=== PATIENT | male | born 1980 | race Caucasian/White ===

== ENCOUNTER → 2019-09-23 09:57 | Outpatient (BNVA) | payer MEDICARE, SELFPAY | PROVIDERS: Visit Provider Emergency Medicine | DX: Z51.81 Encounter for therapeutic drug level monitoring (principal); F17.200 Nicotine dependence, unspecified, uncomplicated; F20.3 Undifferentiated schizophrenia | CPT/HCPCS: 80053; 80061 ==

== ENCOUNTER → 2019-11-03 17:59 | Outpatient (BNVA) | payer MEDICARE, SELFPAY | PROVIDERS: Visit Provider Family Medicine | DX: E03.9 Hypothyroidism, unspecified (principal); Z72.0 Tobacco use; R53.83 Other fatigue; F20.3 Undifferentiated schizophrenia; K64.9 Unspecified hemorrhoids; K21.9 Gastro-esophageal reflux disease without esophagitis; B35.1 Tinea unguium; M75.42 Impingement syndrome of left shoulder | CPT/HCPCS: 82607; 82652; 84439; 84443; 84481 ==

== ENCOUNTER 2019-11-11 06:00 | Outpatient (RCR) | payer MEDICARE, SELFPAY | END 2019-11-12 23:59 | disposition home or self-care (01) | LOC: MPT 06:00 | PROVIDERS: PCP Family Medicine; Referring Provider Family Medicine; Visit Provider Family Medicine | DX: M75.42 Impingement syndrome of left shoulder (principal) | CPT/HCPCS: 97110; 97140; 97161 ==

== ENCOUNTER 2019-11-13 06:00 | Outpatient (RCR) | payer MEDICARE, SELFPAY | END 2019-12-13 23:59 | disposition home or self-care (01) | LOC: MPT 06:00 | PROVIDERS: PCP Family Medicine; Referring Provider Family Medicine; Visit Provider Family Medicine | DX: M75.42 Impingement syndrome of left shoulder (principal) | CPT/HCPCS: 97110; 97140; 97530 ==

== ENCOUNTER → 2020-01-18 15:00 | Outpatient (BNVA) | payer MEDICARE, SELFPAY | PROVIDERS: PCP Family Medicine; Visit Provider Family Medicine | DX: E03.9 Hypothyroidism, unspecified (principal); F41.1 Generalized anxiety disorder; F20.3 Undifferentiated schizophrenia | CPT/HCPCS: 84443 ==

== ENCOUNTER → 2020-06-15 09:14 | Outpatient (BNVA) | payer MEDICARE, SELFPAY | PROVIDERS: PCP Family Medicine; Visit Provider Family Medicine | DX: F41.1 Generalized anxiety disorder (principal); E03.9 Hypothyroidism, unspecified; I10 Essential (primary) hypertension; F20.3 Undifferentiated schizophrenia; K64.9 Unspecified hemorrhoids; K21.9 Gastro-esophageal reflux disease without esophagitis | CPT/HCPCS: 80053; 84439; 84443; 84481 ==

== ENCOUNTER → 2020-07-27 10:27 | Outpatient (BNVA) | payer MEDICARE, SELFPAY | PROVIDERS: PCP Family Medicine; Visit Provider Family Medicine | DX: R53.83 Other fatigue (principal); I10 Essential (primary) hypertension; E55.9 Vitamin D deficiency, unspecified; Z72.0 Tobacco use; E03.9 Hypothyroidism, unspecified; F41.1 Generalized anxiety disorder; Z91.19 Patient's noncompliance with other medical treatment and regimen; F20.3 Undifferentiated schizophrenia | CPT/HCPCS: 80061; 82607; 82652 ==

== ENCOUNTER → 2020-11-08 09:36 | Outpatient (BNVA) | payer MEDICARE, SELFPAY | PROVIDERS: PCP Family Medicine; Visit Provider Emergency Medicine | DX: K21.9 Gastro-esophageal reflux disease without esophagitis (principal); K44.9 Diaphragmatic hernia without obstruction or gangrene; K92.0 Hematemesis; E03.9 Hypothyroidism, unspecified; F20.3 Undifferentiated schizophrenia | CPT/HCPCS: 84443; 85025 ==

== ENCOUNTER → 2020-12-22 12:10 | Outpatient (BNVA) | payer MEDICARE, SELFPAY | PROVIDERS: PCP Family Medicine; Visit Provider Surgery | DX: Z20.822 Contact with and (suspected) exposure to COVID-19 (principal) | CPT/HCPCS: 87635 ==

== ENCOUNTER 2020-12-27 08:07 | Day surgery (SDC) | payer MEDICARE, SELFPAY ==
[2020-12-27 08:54] VITALS: BP 137/82; PULSE 73; RESP 18; TEMP 36.4; O2SAT 97
[2020-12-27] MEDS: sodium chloride 0.9% 1,000 ML 30 ML IV (09:03)
--- NOTE | 2020-12-27 09:06 | ANES.PREANE2 ---
Pre-Anesthetic Assessment Pre-Anesthetic Assessment: Height/Weight: Height 1.8 m Weight 113.398 kg Temp Pulse Resp BP Pulse Ox 97.6 F 73 18 137/82 97 12/27/20 08:54 12/27/20 08:54 12/27/20 08:54 12/27/20 08:54 12/27/20 08:54 Preop Diagnosis: Hematemesis Proposed Procedure: Operation Date: 12/27/20 09:15 Proposed Procedures p EGD 64223 k21.9(Not Applicable) - Leonid Estrella MD Was Beta Fatimah taken within 24 hours: N/A Was Clonidine taken within 24 hours: N/A Last intake: Intake Last Liquid Date 12/26/20 Last Liquid Time 23:00 Last Solid Date 12/26/20 Last Solid Time 23:00 Social: Social History: No alcohol and No tobacco CV/HEM: CV/HEM: HTN GI: GI: GERD Metabolic: Metabolic: Thyroid Neuropsych: Neuropsych: Anxiety Anesthetic Plan: ASA status: 2 Anesthesia: MAC Risk of > 500 ml blood loss (7ml/kg in children): No Meds/Allergies Current Medications: Current Medications Generic Name Dose Route Start Last Admin Trade Name Freq PRN Reason Stop Dose Admin Sodium Chloride 1,000 mls @ 30 ml s/hr 12/27/20 09:00 12/27/20 09:03 Sodium Chloride 0.9% IV 30 mls/hr .Q24H PRANEETH Administration PFSH Anesthesia PFSH: Medical History Frequent loose stools ROSCOE (generalized anxiety disorder) GERD (gastroesophageal reflux disease) Heartburn Hiatal hernia Hypertension Hypothyroid Schizophrenia Seasonal allergies Smoking Surgical History History of colonoscopy History of esophagogastroduodenoscopy (EGD) Family History Grandfather Heart disease 3 blocked arteries Denies family history of Anesthesia complication Bleeding disorder Social History Smoking and tobacco status: current every day smoker cigarettes Alcohol intake: never Desire information about alcohol rehabilitation?: No Desire information about substance/drug rehabilitation?: No Caregiver/support person: Yes Lives independently: No Household members: spouse and children History of recent travel: No Current gender identity: Male Data Anesthesia Cardiac Studies: No Data to Display
--- NOTE | 2020-12-27 09:26 | W.PM.OPSFHP ---
Same Day Surgery H&P Indication for Procedure/HPI DATE OF PROCEDURE: December 27, 2020 CHIEF COMPLAINT/INDICATIONFOR SURGICAL PROCEDURE: Vomiting of blood PREOP DIAGNOSIS: Hematemesis PLANNED PROCEDRUE: Operation Date: 12/27/20 09:15 Proposed Procedures p EGD 32891 k21.9(Not Applicable) - Leonid Estrella MD 11/15/20 This is a pleasant 40 years old gentleman has history of repeated vomiting attacks also gives a history of hiatal hernia and had noticed some blood at the last portion of his vomitus. Patient comes today for potential discussion about endoscopy, he has been on PPI therapy for many years. And it does not seem that he is making good progress. 12/27/20 Patient comes today for diagnostic EGD ROS All systems have been reviewed negative except as per the above or per problem list Medications/Allergies* Home Medications Medication Instructions Recorded Confirmed Type cholecalciferol (vitamin D3) 25 125 mcg PO .weekly cap 07/27/20 12/27/20 History mcg (1,000 unit) capsule magnesium oxide 400 mg PO DAILY 07/27/20 12/27/20 History zinc 50 mg tablet 50 mg PO DAILY 07/27/20 12/27/20 History Allergies/Adverse Reactions Allergy/AdvReac Type Severity Reaction Status Date / Time No Known Allergies Allergy Verified 12/13/20 12:40 Current Medications: Generic Name Dose Route Start Last Admin Trade Name Freq PRN Reason Stop Dose Admin Sodium Chloride 1,000 mls @ 30 mls/hr 12/27/20 09:00 12/27/20 09:03 Sodium Chloride 0.9% IV 30 mls/hr .Q24H PRANEETH Administration Pertinent History/Comorbid Conditions* Medical History Frequent loose stools ROSCOE (generalized anxiety disorder) GERD (gastroesophageal reflux disease) Heartburn Hiatal hernia Hypertension Hypothyroid Schizophrenia Seasonal allergies Smoking Surgical History (Updated 09/03/19 @ 15:41 by Monroe Don MD) History of colonoscopy History of esophagogastroduodenoscopy (EGD) Family History (Updated 09/03/19 @ 09:28 by TREVOR Landers) Heart disease Grandfather 3 blocked arteries Denies family history of Anesthesia complication Bleeding disorder Social History Smoking and tobacco status: current every day smoker cigarettes Alcohol intake: never Desire information about alcohol rehabilitation?: No Desire information about substance/drug rehabilitation?: No Caregiver/support person: Yes Lives independently: No Household members: spouse and children History of recent travel: No Current gender identity: Male Pertinent Exam Findings alert, oriented x 3, clear to auscultation bilaterally, regular rate & rhythm and procedure specific exam findings (Abdominal examination nontender nondistended soft) Recommendations Surgery/Procedure today (EGD with possible Biopsy) Coding Level of Care Code Acute 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
[2020-12-27 09:46] VITALS: BP 108/76; PULSE 75; RESP 16; TEMP 36.1; O2SAT 94
[2020-12-27 09:59] VITALS: BP 110/78; PULSE 65; RESP 18; O2SAT 99
--- NOTE | 2020-12-27 14:11 | ANE.PACU2 ---
Inpatient post-anesthesia follow up: Airway intact: Yes Vital signs: Temperature 97.0 F Pulse Rate 65 Respiratory Rate 18 Blood Pressure 110/78 Pulse Oximetry 99 Oxygen Delivery Me thod Room Air Oxygen Flow Rate Fraction of Inspir ed Oxygen Hydration adequate: Yes Nausea and vomiting: No Pain level: 1 Mental status: Baseline
[2020-12-28 13:15] LABS: H. Pylori / CLO Test Negative
== END 2020-12-27 10:05 | disposition home or self-care (01) ==
PROVIDERS: PCP Family Medicine; Visit Provider Surgery
PROC: 0DJ08ZZ Inspection of Upper Intestinal Tract, Via Natural or Artificial Opening Endoscopic (ICD-10-PCS; CPT 43235; principal; 2020-12-27 09:15)
DX: K92.0 Hematemesis (principal); K29.70 Gastritis, unspecified, without bleeding; K31.4 Gastric diverticulum; K21.9 Gastro-esophageal reflux disease without esophagitis; I10 Essential (primary) hypertension; E03.9 Hypothyroidism, unspecified; F17.210 Nicotine dependence, cigarettes, uncomplicated
CPT/HCPCS: 43239; 87077; 96360; J2704; J7030

== ENCOUNTER 2021-02-18 14:43 | Inpatient (IN) | payer MEDICARE, SELFPAY ==
[2021-02-18 14:48] VITALS: BP 135/89; PULSE 93; RESP 18; TEMP 36.4; O2SAT 96; BMI 33.5
--- NOTE | 2021-02-18 15:52 | ED_ITS ---
HPI - General Adult General: Chief complaint: Psychiatric Symptoms Stated complaint: MHE:TALKING TO SELF, NO SLEEP Time Seen by Provider: 02/18/21 15:04 History of Present Illness: HPI narrative: HPI: [40]yo patient w/ hx of anxiety, jesus manuel presenting for acute manic episode. On arrival, the patient is AAOx3 and cooperative with my evaluation. No focal complaints of chest pain, shortness of breath, palpitations, N/V, focal GI/ complaints. Currently denies SI/HI. No complaints of hallucinations. Onset: 3 days ago Duration: ongoing Location: home Severity: severe Review of Systems Narrative: Constitutional: No fever, no chills. HEENT: No vision changes CV: No chest pain, no palpitations PULM: No productive cough, no dyspnea. GI: No abdominal pain, no N/V/D. : No dysuria MSKEL: No muscle pain SKIN: No new rashes, no lesions. NEURO: No headache, no focal weakness. HEME: No visible bruises PSYCH: Normal mood, +jesus manuel PFSH ED PFSH: Medical History Frequent loose stools ROSCOE (generalized anxiety disorder) GERD (gastroesophageal reflux disease) Heartburn Hiatal hernia Hypertension Hypothyroid Schizophrenia Seasonal allergies Smoking Surgical History History of colonoscopy History of esophagogastroduodenoscopy (EGD) Family History Grandfather Heart disease 3 blocked arteries Denies family history of Anesthesia complication Bleeding disorder Social History Smoking and tobacco status: current every day smoker cigarettes Alcohol intake: never Desire information about alcohol rehabilitation?: No Desire information about substance/drug rehabilitation?: No Caregiver/support person: Yes Lives independently: No Household members: spouse and children History of recent travel: No Current gender identity: Male Physical Exam Narrative: EXAM NARRATIVE: Head: Atraumatic Eyes: PERRL, conjunctiva without injection, eyes tracking ENT: Mucous membrane moist NECK: Supple without lymphadenopathy LUNGS: LCTAB CV: RRR ABDOMEN: Soft, nontender EXTREMITY: Normal ROM SKIN: No rash or erythema NEURO: Awake and alert. No focal weakness PSYCH: Cooperative mood and affect. Course Vital Signs: Vital signs: Vital Signs Temperature 97.5 F L 02/18/21 14:48 Pulse Rate 93 02/18/21 14:48 Respiratory Rate 18 02/18/21 14:48 Blood Pressure 135/89 02/18/21 14:48 Pulse Oximetry 96 02/18/21 14:48 MDM - General Adult MDM Narrative: Medical decision making narrative: [40]yo patient w/ hx anxiety and jesus manuel presenting for jesus manuel and psychosis. HDS, exam within normal limit +Psychosis and jesus manuel today. Clinically the patient displays no overt toxidrome; they are well appearing, with low suspicion for toxic ingestion given history and exam. Symptoms unlikely 2/2 anemia, hypothyroidism, infection, or ICH. Workup: CBC, CMP, Lipase, salicylate/tylenol, UDS Lab findings: wnl [3:55pm] On reassessment, labs and workup wnl. Patient is hemodynamically stable with no acute medical complaints. Case discussed with psychiatric provider Dr. Matthews at [facility] psych inpatient with recommendation for admission Disposition: Psych Lab Data: Labs: Lab Results 02/18/21 02/18/21 02/18/21 14:50 16:06 16:06 WBC 8.2 10^3/uL 10^3/ uL (4.0-10.0) RBC 4.68 10^6/uL 10^6 /uL (4.1-5.3) Hgb 14.8 g/dL g/dL (11.7-16.6) Hct 40.2 % L % (42.0-52.0) MCV 85.9 fl fl (80-94) MCH 31.6 pg pg (28.0-34.0) MCHC 36.8 g/dL H g/dL (30.0-36.0) RDW 11.3 % L % (12.1-15.1) Plt Count 278 10^3/cmm 10^3 /cmm (130-400) MPV 8.6 fL fL (7.4-10.4) Neut % (Auto) 57.2 % % Lymph % (Auto) 31.9 % % Leslie % (Auto) 7.9 % % Eos % (Auto) 2.4 % % Baso % (Auto) 0.4 % % Neut # (Auto) 4.70 10^3/uL 10^3 /uL (1.8-7.7) Lymph # (Auto) 2.6 10^3/uL 10^3/ uL (0.8-4.8) Leslie # (Auto) 0.7 10^3/uL 10^3/ uL (0.2-0.9) Eos # (Auto) 0.2 10^3/uL 10^3/ uL (0.0-0.8) Baso # (Auto) 0.0 10^3/uL 10^3/ uL (0.0-0.1) Nucleated RBC % (a uto) 0 % % Nucleated RBCs # 0.0 /100WBC /100W BC Sodium 125 mmol/L L mmol /L (136-145) Potassium 3.9 mmol/L mmol/L (3.5-5.1) Chloride 89 mmol/L L mmol/ L (98-107) Carbon Dioxide 24 mmol/L mmol/L (22-29) Anion Gap 15.9 (5-19) BUN 5 mg/dL L mg/dL (6-20) Creatinine 0.7 mg/dL mg/dL (0.7-1.2) GFR Calculation 126.2 mL/min mL/m in (90-130) Glucose 107 mg/dL mg/dL (65-115) Calculated Osmolal ity 258 mOsm/kg L mOs m/kg (285-295) Calcium 8.5 mg/dL mg/dL (8.5-10.5) Salicylates < 0.3 mg/dL L mg/ dL (3-10) Urine Opiates Scre en Negative ng/mL ng /mL (Negative) Acetaminophen < 5.0 ug/mL L ug/ mL (10-30) Ur Barbiturates Sc reen Negative ng/mL ng /mL (Negative) Ur Phencyclidine S crn Negative ng/mL ng /mL (Negative) Ur Amphetamines Sc reen Negative ng/mL ng /mL (Negative) U Benzodiazepines Scrn Negative ng/mL ng /mL (Negative) Urine Cocaine Scre en Negative ng/mL ng /mL (Negative) U Marijuana (THC) Screen Negative ng/mL ng /mL (Negative) Discharge Plan Discharge Patient Disposition: Admitted As Inpatient Clinical Impression: Psychosis, Jesus Manuel Condition: Stable Coding Level of Care Code ED Automation And Controls Instructor for Bettye Doshi
[2021-02-18 16:15] LABS: Basophils % 0.4 %; Eosinophils # 0.2 10^3/uL (0.0-0.8); Eosinophils % 2.4 %; Hematocrit 40.2 % (42.0-52.0); Hemoglobin 14.8 g/dL (11.7-16.6); Lymphocytes # 2.6 10^3/uL (0.8-4.8); Lymphocytes % 31.9 %; Mean Corpuscular HGB Conc 36.8 g/dL (30.0-36.0); Mean Corpuscular Hemoglobin 31.6 pg (28.0-34.0); Mean Corpuscular Volume 85.9 fl (80-94); Mean Platelet Volume 8.6 fL (7.4-10.4); Monocytes # 0.7 10^3/uL (0.2-0.9); Monocytes % 7.9 %; Neutrophils % 57.2 %; Nucleated Red Blood Cells % 0 %; Platelet Count 278 10^3/cmm (130-400); Red Blood Count 4.68 10^6/uL (4.1-5.3); Red Cell Distribution Width 11.3 % (12.1-15.1); White Blood Count 8.2 10^3/uL (4.0-10.0)
[2021-02-18 16:24] LABS: Amphetamines Screen Urine Negative (Negative); Barbiturates Screen Urine Negative (Negative); Benzodiazepines Screen Urine Negative (Negative); Cocaine Screen Urine Negative (Negative); Opiate Screen Urine Negative (Negative); PCP Screen Urine Negative (Negative); THC Screen Urine Negative (Negative)
[2021-02-18 16:40] LABS: Anion Gap 15.9 (5-19); Blood Urea Nitrogen 5 mg/dL (6-20); Calcium 8.5 mg/dL (8.5-10.5); Carbon Dioxide 24 mmol/L (22-29); Chloride 89 mmol/L (98-107); Glomerular Filtration Rate 126.2 mL/min (90-130); Glucose 107 mg/dL (65-115); Osmolality Calculated 258 mOsm/kg (285-295); Potassium 3.9 mmol/L (3.5-5.1); Sodium 125 mmol/L (136-145)
[2021-02-18 16:41] LABS: Acetaminophen < 5.0 ug/mL (10-30); Salicylate < 0.3 mg/dL (3-10)
[2021-02-18] MEDS: nicotine 21 mg Patch 1 PATCH TRANSDERMA (18:05)
[2021-02-18 18:36] VITALS: BP 128/82; PULSE 78; RESP 17; TEMP 36.5; O2SAT 95
[2021-02-18 20:57] VITALS: BP 109/61; PULSE 79; RESP 17; TEMP 36.6; O2SAT 99
[2021-02-19] MEDS: nicotine 2 mg Gum BUCCAL (05:59)
[2021-02-19 06:00] VITALS: BP 101/72; PULSE 92; RESP 18; TEMP 36.7; O2SAT 99
[2021-02-19] MEDS: fluticasone nasal spray 16gm Btl 1 SPRAY NASAL (08:17)
[2021-02-19] MEDS: magnesium oxide 400 mg tablet PO (08:18)
[2021-02-19] MEDS: famotidine 20 mg Tablet PO ×2 (08:18→20:05)
[2021-02-19] MEDS: pantoprazole DR 40 mg Tablet PO (08:18)
[2021-02-19] MEDS: zinc gluconate 50 mg Tablet PO (08:18)
[2021-02-19] MEDS: fluoxetine 20 mg Capsule PO (08:18)
[2021-02-19] MEDS: levothyroxine 100 mcg Tablet 200 MCG PO (08:18)
[2021-02-19] MEDS: nicotine 21 mg Patch 1 PATCH TRANSDERMA (08:38)
--- NOTE | 2021-02-19 11:41 | NPU.GN ---
[facility] Unit Group Topic:Stressors Psych Education Worksheet General Mood of Group: Bc did attend group therapy this morning. He participated with others in the group and shared experiences with others in the group and this senior writer. Bc was very informative while explaining to others in the group his experiences and how medication is important with a mental health diagnosis. Bc did sign up for [facility] services with [facility] as this senior writer aided patient in completing the paperwork. Intake packet completed.
--- NOTE | 2021-02-19 12:38 | W.PM.NPUH&PS ---
Providers/Chief Complaint Admitting Physician: Elroy Matthews MD Primary Care Provider: Odalys Matthews MD Chief Complaint: MHE:TALKING TO SELF, NO SLEEP HPI NPU History of Present Illness Bc Chao is a 40 year old male who presented to the emergency department with the following report: Chief complaint: Psychiatric Symptoms Stated complaint: MHE:TALKING TO SELF, NO SLEEP Time Seen by Provider: 02/18/21 15:04 History of Present Illness: HPI narrative: HPI: [40]yo patient w/ hx of anxiety, jesus manuel presenting for acute manic episode. On arrival, the patient is AAOx3 and cooperative with my evaluation. No focal complaints of chest pain, shortness of breath, palpitations, N/V, focal GI/ complaints. Currently denies SI/HI. No complaints of hallucinations. Onset: 3 days ago Duration: ongoing Location: home Severity: severe. He was admitted to the neuropsychiatric unit for definitive treatment of those issues. He presents today reporting that he has been hospitalized psychiatrically as a kid. Given his state of likely jesus manuel he struggled to stay on task or explain some aspects with clarity. But he reports between ages 17 and 19 he was hospitalized multiple times and it appears he may have had periods he was at a residential treatment facility. He reports he started having psychosis and at one point became mute due to his lack of trust and presence of paranoia. He endorses a long history of medications including Zyprexa, Seroquel Wellbutrin and Prozac. He reports that he has been on the Abilify injection for as long as he can remember. He reports has been effective until recently. He reports he stopped going to outpatient treatment facilities because he became so stable that his family doctor was able to prescribe for him and now things have changed and he is really worried. He endorses smoking less than a pack of cigarettes a day, denies alcohol, marijuana or any illicit drug use he reports he does have a past history of marijuana and some crack that he used very briefly he reports he did have a rehab stent as a child but that may have been confused with the RTF but he denies ever having a DUI. He denies any suicide attempts. But he reports that he seems to be entering a manic phase he had a period of days where he went 3 days without sleep he reports he been really hard on him and his reports he has been talking to himself more and more but he had previously been really stable. He reports increased pace of his speech feeling like he is on speed so to speak. We discussed the risk benefits and alternatives of a trial of Invega versus lithium and he understood and agreed to proceed as is documented in this note. Psychiatric history: As above. Substance abuse history: As above. Family history: He reports that there has been some mental health and addiction issues in his family but he denies any suicide attempts or completions in his family. Developmental history: He denies any issues with his or delivery, reports that he learned to walk and talk and met his developmental milestones on time, reports that when he went off to school he did not require speech therapy, learning support emotional support or special education classes. Psychosocial history: He reports that his parents were together when he was born but split early on and that he is the only product of that union. He reports he has 2 younger siblings a brother and a sister through his mother that are his half siblings and he is unaware of any children that would be his half siblings from his father. He reports his childhood was good and denied emotional physical or sexual abuse but he did report that his brother was taken by [facility] and that he was in placement but again he was unclear about RTF versus inpatient hospital versus placement by child protective services. He did not graduate from high school but he did get his GED and get some college. He endorses being a heterosexual with his longest relationship being 4 years. He reports he has been 1 time and never , he denies having any children, he denies being in the , and endorses being a Denominational. 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 He currently lives in a house with his . Legal history: He denies any significant legal peril except for some things that may have happened in his youth. Medical history: He endorses some diverticulitis. Meds NPU Home Medications Medication Instructions Recorded Confirmed Last Taken Type magnesium oxide 400 mg PO DAILY 07/27/20 02/18/21 02/17/21 History zinc 50 mg tablet 50 mg PO DAILY 07/27/20 02/18/21 02/17/21 History fluoxetine 20 mg capsule 20 mg PO DAILY 30 Days #30 cap 12/13/20 02/18/21 02/17/21 Rx ibuprofen 800 mg tablet 800 mg PO Q8H PRN 30 Days #90 tab 12/13/20 02/18/21 12/26/20 Rx loratadine 10 mg tablet 10 mg PO DAILY PRN 30 Days #30 tab 12/13/20 02/18/21 12/26/20 Rx fluticasone propionate 50 See Rx Instructions .ROUTE 01/08/21 02/18/21 Unknown Rx mcg/actuation nasal .COMPLEX #16 g spray,suspension Euthyrox 200 mcg PO DAILY 02/18/21 02/18/21 02/17/21 History aripiprazole 400 mg IM Q28D 02/18/21 02/18/21 Unknown History docusate sodium 100 mg PO BID PRN 02/18/21 02/18/21 Unknown History famotidine 20 mg PO BID 02/18/21 02/18/21 02/17/21 History pantoprazole 40 mg PO DAILY 02/18/21 02/18/21 02/17/21 History Allergies Allergy/AdvReac Type Severity Reaction Status Date / Time quetiapine [From Seroquel] AdvReac ADR-Anxiety Verified 02/19/21 05:24 PFSH NPU PFSH: Medical History Frequent loose stools ROSCOE (generalized anxiety disorder) GERD (gastroesophageal reflux disease) Heartburn Hiatal hernia Hypertension Hypothyroid Schizophrenia Seasonal allergies Smoking Surgical History History of colonoscopy History of esophagogastroduodenoscopy (EGD) Family History Grandfather Heart disease 3 blocked arteries Denies family history of Anesthesia complication Bleeding disorder Social History Smoking and tobacco status: current every day smoker cigarettes Alcohol intake: never Desire information about alcohol rehabilitation?: No Desire information about substance/drug rehabilitation?: No Caregiver/support person: Yes Lives independently: No Household members: spouse and children History of recent travel: No Current gender identity: Male Mental Status Exam MSE Comments: This is an overweight versus obese white male with hospital scrubs on with appropriate grooming and eye contact. No abnormal movements except for mild psychomotor retardation. Cooperative with exam in mild to moderate distress. Speech was normal rate and volume. Mood described as anxious and a little scared, affect congruent and tearful. Thought process organized. Thought content: Patient denied suicidal or homicidal ideation, there were no delusions reported or noted, but there were some reports of confusion about the authenticity of different thoughts, he did report having some auditory and visual hallucinations. Attention and concentration were intact and memory appeared mostly reliable but none were formally tested. He is alert and oriented x3. Insight and judgment are fair, impulse control is limited. Vitals/I&O/Wt Last Vital Signs Temp 98.1 F 02/19/21 06:00 Pulse 92 02/19/21 06:00 Resp 18 02/19/21 06:00 BP 101/72 02/19/21 06:00 Pulse Ox 99 02/19/21 06:00 Weight last 48 hrs Weight 108.862 kg Data NPU : 02/18/21 16:06 02/18/21 16:06 A&P Assessment and plan (1) Psychosis: Status: Acute (2) Jesus Manuel: Status: Acute (3) Gastritis: Status: Acute (4) Gastric diverticulum: Status: Chronic (5) Frequent loose stools: Status: Acute Qualifiers: Diarrhea type: unspecified type Qualified Code(s): R19.7 - Diarrhea, unspecified (6) Hiatal hernia: Status: Acute (7) Vitamin D deficiency: Status: Acute (8) Seasonal allergies: Status: Acute (9) Hypertension: Status: Acute Qualifiers: Hypertension type: essential hypertension Qualified Code(s): I10 - Essential (primary) hypertension (10) ROSCOE (generalized anxiety disorder): Status: Acute (11) Hypothyroid: Status: Acute Qualifiers: Hypothyroidism type: acquired Qualified Code(s): E03.9 - Hypothyroidism, unspecified (12) Tobacco use: Status: Acute (13) Schizophrenia: Status: Acute Qualifiers: Schizophrenia type: undifferentiated schizophrenia Qualified Code(s): F20.3 - Undifferentiated schizophrenia (14) Bleeding hemorrhoids: Status: Acute (15) GERD (gastroesophageal reflux disease): Status: Acute Qualifiers: Esophagitis presence: without esophagitis Qualified Code(s): K21.9 - Gastro-esophageal reflux disease without esophagitis Additional A&P Information This is a 40-year-old white male with a long history of schizoaffective disorder bipolar type versus bipolar disorder who presents with some possible jesus manuel and the lack of effectiveness of his longtime long-acting injectable Fabiola Esparza who presents open to a trial of medication to either augment or change to. 1. Continue current medication. We will start Invega 6 mg p.o. every morning. 2. Encourage individual, group and milieu therapy. 3. Continue every 15 minute checks for safety. Attestations NPU Medical Necessity Statement*: Inpatient hospitalization is medically necessary and the clinically appropriate intervention at this time. We will monitor medications and make changes as indicated. Likely length of stay 4 to 6 days. He will be in the hospital for over 2 midnights. 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 [facility] Fwd Diagnoses Psychosis F29 Jesus Manuel F30.9 Gastritis K29.70 Gastric diverticulum K31.4 Frequent loose stools R19.7 Diarrhea type: unspecified type Hiatal hernia K44.9 Vitamin D deficiency E55.9 Seasonal allergies J30.2 Hypertension I10 Hypertension type: essential hypertension ROSCOE (generalized anxiety disorder) F41.1 Hypothyroid E03.9 Hypothyroidism type: acquired Tobacco use Z72.0 Schizophrenia F20.3 Schizophrenia type: undifferentiated schizophrenia Bleeding hemorrhoids K64.9 GERD (gastroesophageal reflux disease) K21.9 Esophagitis presence: without esophagitis
[2021-02-19 14:00] VITALS: BP 140/83; PULSE 78; RESP 20; TEMP 36.7; O2SAT 95
[2021-02-19] MEDS: paliperidone ER 6 mg Tablet PO (16:09)
[2021-02-19 21:03] VITALS: BP 120/79; PULSE 79; RESP 16; TEMP 36.6; O2SAT 99
[2021-02-20 05:53] VITALS: RESP 17
[2021-02-20] MEDS: pantoprazole DR 40 mg Tablet PO (06:09)
[2021-02-20] MEDS: magnesium oxide 400 mg tablet PO (06:09)
[2021-02-20] MEDS: levothyroxine 100 mcg Tablet 200 MCG PO (06:09)
[2021-02-20] MEDS: fluticasone nasal spray 16gm Btl 1 SPRAY NASAL (08:21)
[2021-02-20] MEDS: fluoxetine 20 mg Capsule PO (08:22)
[2021-02-20] MEDS: zinc gluconate 50 mg Tablet PO (08:22)
[2021-02-20] MEDS: paliperidone ER 6 mg Tablet PO (08:22)
[2021-02-20] MEDS: nicotine 21 mg Patch 1 PATCH TRANSDERMA (08:22)
[2021-02-20] MEDS: famotidine 20 mg Tablet PO ×2 (08:23→20:50)
--- NOTE | 2021-02-20 11:41 | NPU.GN ---
[facility] Unit Group Topic:Grounding Thoughts, Coping Skills General Mood of Group: Bc did very well and attended group today. Bc was social and in a good mood today. Bc is very knowledgeable with coping mechanisms and shared incite with others in the group.
[2021-02-20 14:00] VITALS: BP 143/89; PULSE 84; RESP 17; TEMP 36.6; O2SAT 98
--- NOTE | 2021-02-20 14:20 | W.PM.NPUPNS ---
Subjective NPU Subjective: Interval history: Patient presents today reporting that he feels the Invega is effective and is really slowing him down a bit. Reports that he is wondering whether we can give him the injection today. We discussed slowing down in making sure that we in fact see improvement before we talk about an injection and then really trying to come to the decision of whether we are cross titrating versus augmenting with the Invega. Mental Status Exam MSE Comments: This is an overweight versus obese white male with hospital scrubs on with appropriate grooming and eye contact. No abnormal movements except for mild psychomotor retardation. Cooperative with exam in mild distress. Speech was normal rate and volume. Mood described as a little better, affect congruent and more calm. Thought process organized. Thought content: Patient denied suicidal or homicidal ideation, there were no delusions reported or noted, but there were some reports of confusion about the authenticity of different thoughts, he did report having some auditory and visual hallucinations. Attention and concentration were intact and memory appeared mostly reliable but none were formally tested. He is alert and oriented x3. Insight and judgment are fair, impulse control is limited. Vitals/I&O/Wt Last Vital Signs Temp 97.8 F 02/19/21 21:03 Pulse 79 02/19/21 21:03 Resp 17 02/20/21 05:53 BP 120/79 02/19/21 21:03 Pulse Ox 99 02/19/21 21:03 Weight last 48 hrs Weight 108.862 kg Data NPU : 02/18/21 16:06 02/18/21 16:06 A&P Additional A&P Information (1) Psychosis: (2) Jeanette: (3) Gastritis: (4) Gastric diverticulum: (5) Frequent loose stools: (6) Hiatal hernia: (7) Vitamin D deficiency: (8) Seasonal allergies: (9) Hypertension: (10) ROSCOE (generalized anxiety disorder): (11) Hypothyroid: (12) Tobacco use: (13) Schizophrenia: (14) Bleeding hemorrhoids: (15) GERD (gastroesophageal reflux disease): Additional A&P Information This is a 40-year-old white male with a long history of schizoaffective disorder bipolar type versus bipolar disorder who presents with some possible jeanette and the lack of effectiveness of his longtime long-acting injectable Abilify Maintena who presents open to a trial of medication to either augment or change to. 1. Continue current medication. 2. Encourage individual, group and milieu therapy. 3. Continue every 15 minute checks for safety. Attestations NPU Medical Necessity Statement*: Inpatient hospitalization is medically necessary and the clinically appropriate intervention at this time. We will monitor medications and make changes as indicated. Likely length of stay 2-4 days. Coding Level of Care Code Acute Filling Room Operator for Bettye Doshi
[2021-02-20 20:33] VITALS: RESP 18
[2021-02-21 06:00] VITALS: BP 149/99; PULSE 86; RESP 18; O2SAT 98
[2021-02-21] MEDS: levothyroxine 100 mcg Tablet 200 MCG PO ×2 (07:23→09:06)
[2021-02-21] MEDS: zinc gluconate 50 mg Tablet PO (09:06)
[2021-02-21] MEDS: fluoxetine 20 mg Capsule PO (09:06)
[2021-02-21] MEDS: pantoprazole DR 40 mg Tablet PO (09:06)
[2021-02-21] MEDS: famotidine 20 mg Tablet PO (09:06)
[2021-02-21] MEDS: paliperidone ER 6 mg Tablet PO (09:06)
[2021-02-21] MEDS: docusate sodium 100 mg Capsule PO (09:06)
[2021-02-21] MEDS: magnesium oxide 400 mg tablet PO (09:06)
[2021-02-21] MEDS: fluticasone nasal spray 16gm Btl 1 SPRAY NASAL (09:07)
[2021-02-21] MEDS: nicotine 2 mg Gum BUCCAL ×2 (10:24→12:23)
--- NOTE | 2021-02-21 12:51 | NPU.GN ---
[facility] Group Topic: Self Care Bingo/ Crisis Plan Work Sheet General Mood of Group: Bc did attend and participate in group today. His demeanour was good and he was social in group with this conventional underwriter and others. Bc seems very informative with others in group with given advice to others and often shares his experiences and opinions on topics. Bc seems as though he is stable as he has mentioned to this conventional underwriter that he just needed help with his medications, and what he is on now seem to be helping him. He is ready to go home.
--- NOTE | 2021-02-21 13:15 | DCPLANNER ---
IMM completed with pt on 02/21/21 @ [id number]. Pt was given a copy of rights.
[2021-02-21 14:00] VITALS: BP 138/92; PULSE 83; RESP 17; TEMP 36.9; O2SAT 97
[2021-02-21] MEDS: paliperidone palmitate 234 mg Syringe IM (18:16)
--- NOTE | 2021-02-21 18:23 | P.NPUDS_ITS ---
Diagnoses at Discharge Discharge Diagnosis (1) Psychosis: Status: Acute (2) Jesus Manuel: Status: Acute (3) Gastritis: Status: Acute (4) Gastric diverticulum: Status: Chronic (5) Frequent loose stools: Status: Acute Qualifiers: Diarrhea type: unspecified type Qualified Code(s): R19.7 - Diarrhea, unspecified (6) Hiatal hernia: Status: Acute (7) Vitamin D deficiency: Status: Acute (8) Seasonal allergies: Status: Acute (9) Hypertension: Status: Acute Qualifiers: Hypertension type: essential hypertension Qualified Code(s): I10 - Essential (primary) hypertension (10) ROSCOE (generalized anxiety disorder): Status: Acute (11) Hypothyroid: Status: Acute Qualifiers: Hypothyroidism type: acquired Qualified Code(s): E03.9 - Hypothyroidism, unspecified (12) Tobacco use: Status: Acute (13) Schizophrenia: Status: Acute Qualifiers: Schizophrenia type: undifferentiated schizophrenia Qualified Code(s): F20.3 - Undifferentiated schizophrenia (14) Bleeding hemorrhoids: Status: Acute (15) GERD (gastroesophageal reflux disease): Status: Acute Qualifiers: Esophagitis presence: without esophagitis Qualified Code(s): K21.9 - Gastro-esophageal reflux disease without esophagitis Reason for Visit Reason for Visit: MHE:TALKING TO SELF, NO SLEEP Brief History: History of Present Illness Bc Chao is a 40 year old male who presented to the emergency department with the following report: Chief complaint: Psychiatric Symptoms Stated complaint: MHE:TALKING TO SELF, NO SLEEP Time Seen by Provider: 02/18/21 15:04 History of Present Illness: HPI narrative: HPI: [40]yo patient w/ hx of anxiety, jesus manuel presenting for acute manic episode. On arrival, the patient is AAOx3 and cooperative with my evaluation. No focal complaints of chest pain, shortness of breath, palpitations, N/V, focal GI/ complaints. Currently denies SI/HI. No complaints of hallucinations. Onset: 3 days ago Duration: ongoing Location: home Severity: severe. He was admitted to the neuropsychiatric unit for definitive treatment of those issues. He presents today reporting that he has been hospitalized psychiatrically as a kid. Given his state of likely jesus manuel he struggled to stay on task or explain some aspects with clarity. But he reports between ages 17 and 19 he was hospitalized multiple times and it appears he may have had periods he was at a residential treatment facility. He reports he started having psychosis and at one point became mute due to his lack of trust and presence of paranoia. He endorses a long history of medications including Zyprexa, Seroquel Wellbutrin and Prozac. He reports that he has been on the Abilify injection for as long as he can remember. He reports has been effective until recently. He reports he stopped going to outpatient treatment facilities because he became so stable that his family doctor was able to prescribe for him and now things have changed and he is really worried. He endorses smoking less than a pack of cigarettes a day, denies alcohol, marijuana or any illicit drug use he reports he does have a past history of marijuana and some crack that he used very briefly he reports he did have a rehab stent as a child but that may have been confused with the RTF but he denies ever having a DUI. He denies any suicide attempts. But he reports that he seems to be entering a manic phase he had a period of days where he went 3 days without sleep he reports he been really hard on him and his reports he has been talking to himself more and more but he had previously been really stable. He reports increased pace of his speech feeling like he is on speed so to speak. We discussed the risk benefits and alternatives of a trial of Invega versus lithium and he understood and agreed to proceed as is documented in this note. Psychiatric history: As above. Substance abuse history: As above. Family history: He reports that there has been some mental health and addiction issues in his family but he denies any suicide attempts or completions in his family. Developmental history: He denies any issues with his or delivery, reports that he learned to walk and talk and met his developmental milestones on time, reports that when he went off to school he did not require speech therapy, learning support emotional support or special education classes. Psychosocial history: He reports that his parents were together when he was born but split early on and that he is the only product of that union. He reports he has 2 younger siblings a brother and a sister through his mother that are his half siblings and he is unaware of any children that would be his half siblings from his [facility] er. He reports his childhood was good and denied emotional physical or sexual abuse but he did report that his brother was taken by [facility] and that he was in placement but again he was unclear about RTF versus inpatient hospital versus placement by child protective services. He did not graduate from high school but he did get his GED and get some college. He endorses being a heterosexual with his longest relationship being 4 years. He reports he has been 1 time and never , he denies having any children, he denies being in the , and endorses being a Christianity. 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 He currently lives in a house with his . Legal history: He denies any significant legal peril except for some things that may have happened in his youth. Medical history: He endorses some diverticulitis. Hospital Course Hospital Course Easily acclimated competencies provided. We started Invega 6 mg p.o. every morning and then started the Invega injection to be continued after discharge. He is already on the Abilify Maintena injection and we discussed him continuing both injectables but discussed working with his outpatient team to determine if he can take the Invega injection alone. However with his long history without missing an injection he may very well need both medications. We discussed the possibility of him staying longer however as a voluntary patient he was working with his to support him discharging and he was able to contract for safety outside the hospital prior to discharge. And his was supportive of them managing this at home together. During the hospitalization, patient had routine laboratory studies which were within normal limits except for few outliers. Additionally there was a general medical evaluation which was also within normal limits and revealed no new acute processes. Discharge Summary: At the time of discharge, lethality was denied and psychosis was resolving. Mood and anxiety were well managed. Patient endorsed a plan to avoid all drugs of abuse and follow-up with the aftercare recommendations of the treatment team. Patient was evaluated and deemed to be absent credible lethality, and had achieved improvement during this inpatient hospitalization, and identification but desired to be discharged and was a voluntary patient without clear criteria for a 96-hour hold so was discharged. Mental Status Exam MSE Comments: This is an overweight versus obese white male with hospital scrubs on with appropriate grooming and eye contact. No abnormal movements except for mild psychomotor retardation. Cooperative with exam in no acute distress. Speech was normal rate and volume. Mood described as better, affect congruent and more calm. Thought process organized. Thought content: Patient denied suicidal or homicidal ideation, there were no delusions reported or noted, but there were reports of confusion about the authenticity of different thoughts which was improving, he did report having diminished auditory and visual hallucinations. Attention and concentration were intact and memory appeared mostly reliable but none were formally tested. He is alert and oriented x3. Insight and judgment are fair, impulse control is limited. Discharge Data Vitals: Last Vital Signs Temp 98.4 F 02/21/21 14:00 Pulse 83 02/21/21 14:00 Resp 17 02/21/21 14:00 BP 138/92 02/21/21 14:00 Pulse Ox 97 02/21/21 14:00 Discharge Plan Discharge Patient Disposition: Home Condition: Stable Prescriptions: New Invega Sustenna 156 mg/mL syringe 156 mg IM Q30D 30 Days Qty: 1 RF: 2 Continued fluoxetine 20 mg capsule 20 mg PO DAILY 30 Days Qty: 30 RF: 2 loratadine 10 mg tablet 10 mg PO DAILY PRN (Reason: allergy symptoms) 30 Days Qty: 30 RF: 5 ibuprofen 800 mg tablet 800 mg PO Q8H PRN (Reason: pain) 30 Days Qty: 90 RF: 5 magnesium oxide 400 mg magnesium tablet 400 mg PO DAILY RF: 0 zinc 50 mg tablet 50 mg PO DAILY RF: 0 fluticasone propionate 50 mcg/actuation spray,suspension See Rx Instructions .ROUTE .COMPLEX Qty: 16 RF: 0 pantoprazole 40 mg tablet,delayed release (DR/EC) 40 mg PO DAILY RF: 0 docusate sodium 100 mg capsule 100 mg PO BID PRN (Reason: CONSTIPATION) RF: 0 Euthyrox 200 mcg tablet 200 mcg PO DAILY RF: 0 famotidine 20 mg Tablet 20 mg PO BID RF: 0 Discharge Orders: Discharge Order (Routine); Ordered 02/21/21 Ordered By: Elroy Matthews Referrals: Odalys Matthews MD [Primary Care Provider] - Discharge Diet: Regular Discharge Activity: Resume usual activity Patient Instructions: Brief Psychotic Disorder (GEN), Return to Work Instructions (GEN), Opioid Safety Discharge Attestations NPU Time Spent in Discharge Care*: greater than 30 min Specific Discharge Activities: Specific discharge activities: educating patient, educating and/or supporting family/caregiver, discussing with wrapper caser/social workers/dc planners, documenting/other paperwork and evaluating patient/reviewing data Coding Level of Care Code Acute Chg FW DC note Diagnoses Psychosis F29 Jesus Manuel F30.9 Gastritis K29.70 Gastric diverticulum K31.4 Frequent loose stools R19.7 Diarrhea type: unspecified type Hiatal hernia K44.9 Vitamin D deficiency E55.9 Seasonal allergies J30.2 Hypertension I10 Hypertension type: essential hypertension ROSCOE (generalized anxiety disorder) F41.1 Hypothyroid E03.9 Hypothyroidism type: acquired Tobacco use Z72.0 Schizophrenia F20.3 Schizophrenia type: undifferentiated schizophrenia Bleeding hemorrhoids K64.9 GERD (gastroesophageal reflux disease) K21.9 Esophagitis presence: without esophagitis
[2021-02-21 18:47] VITALS: BP 138/92; PULSE 83; RESP 17; TEMP 36.9; O2SAT 97
== END 2021-02-21 18:57 | disposition home or self-care (01) | DRG 885 ==
LOC: ER 18:05 → NP 18:24
PROVIDERS: Admitting Provider Psychiatry & Neurology Psychiatry; Emergency Provider Emergency Medicine; PCP Family Medicine; Visit Provider Psychiatry & Neurology Psychiatry
DX: F23 Brief psychotic disorder (principal); F41.1 Generalized anxiety disorder; I10 Essential (primary) hypertension; E03.9 Hypothyroidism, unspecified; F17.210 Nicotine dependence, cigarettes, uncomplicated
CPT/HCPCS: 80048; 80306; 80307; 85025; 96372; 97150; 97165; 99285

== ENCOUNTER → 2021-02-27 10:25 | Outpatient (BNVA) | payer MEDICARE, SELFPAY | PROVIDERS: PCP Family Medicine; Visit Provider Family Medicine | DX: F20.3 Undifferentiated schizophrenia (principal); Z51.81 Encounter for therapeutic drug level monitoring; E03.9 Hypothyroidism, unspecified | CPT/HCPCS: 80053; 84443; 85025 ==

== ENCOUNTER → 2021-07-03 09:09 | Outpatient (BNVA) | payer MEDICARE, OTHER, SELFPAY | PROVIDERS: PCP Family Medicine; Visit Provider Family Medicine | DX: E03.9 Hypothyroidism, unspecified (principal); I10 Essential (primary) hypertension; Z13.220 Encounter for screening for lipoid disorders; Z13.6 Encounter for screening for cardiovascular disorders | CPT/HCPCS: 80053; 80061; 84439; 84443; 84481; 85025 ==

== ENCOUNTER → 2021-08-02 18:40 | Outpatient (BNVA) | payer MEDICARE, OTHER, SELFPAY | PROVIDERS: PCP Family Medicine; Visit Provider Emergency Medicine | DX: R68.89 Other general symptoms and signs (principal) | CPT/HCPCS: 87400 ==

== ENCOUNTER 2021-09-10 00:08 | Emergency (ER) | payer MEDICARE, OTHER, SELFPAY ==
[2021-09-10 00:11] VITALS: BP 143/88; PULSE 86; RESP 20; TEMP 36.3; O2SAT 97; BMI 34.8
--- NOTE | 2021-09-10 00:17 | ED_ITS ---
HPI - Ear Problem General: Chief complaint: Ear Stated complaint: possible object in R ear Time Seen by Provider: 09/10/21 00:09 Source: patient Mode of arrival: ambulatory Limitations: no limitations History of Present Illness: Patient is a 41-year-old male who presents to ED today with a complaint of right ear pain, fullness, and muffled feeling. Patient is concerned he could have a foreign body/insect in his ear. He has not had any injury or trauma to the ear. He has had a small amount of clear drainage. He is complaining of some mild discomfort. He does not have any other URI symptoms. He does state he was sick with a URI and then influenza few weeks ago. He is not having any tinnitus. No fevers. MD Complaint: ear pain and ear discharge Location: right ear Duration: constant Severity: moderate Relieving factors: nothing Exacerbating factors: nothing Context: recent illness Discharge from ear: yes - clear Associated symptoms: Reports ear or mastoid pain; Denies fever(s), headache(s), neck pain or tinnitus Treatment prior to arrival: none Review of Systems Const: Denies: fever(s), chills, body aches, fatigue or malaise Eyes: Denies: change in vision, blurry vision, eye discomfort or eye discharge ENMT: Reports: ear or mastoid pain, ear discharge and change in hearing; Denies: throat pain, odynophagia, tinnitus, disequilibrium, nasal discharge, nasal congestion, post nasal drip or sinus pain Card: Denies: chest pain Resp: Denies: dyspnea GI: Denies: abdominal pain Musc: Denies: neck pain Skin/Breast: Denies: rash Neuro: Denies: headache(s) PFSH ED PFSH: Medical History Frequent loose stools ROSCOE (generalized anxiety disorder) GERD (gastroesophageal reflux disease) Heartburn Hiatal hernia Hypertension Side effect to MAGUE Hypothyroid Psychiatric care Schizophrenia Seasonal allergies Smoking Surgical History History of colonoscopy History of esophagogastroduodenoscopy (EGD) Family History Grandfather Heart disease 3 blocked arteries Denies family history of Anesthesia complication Bleeding disorder Social History Smoking and tobacco status: current every day smoker cigarettes Alcohol intake: never Desire information about alcohol rehabilitation?: No Desire information about substance/drug rehabilitation?: No Caregiver/support person: Yes Lives independently: No Household members: spouse and children History of recent travel: No Current gender identity: Male Physical Exam 2 Const: COMMON NORMALS: no acute distress, patient oriented x3, no limitations, alert and well nourished GENERAL APPEARANCE: cooperative ORIENTATION/CONSCIOUSNESS: Yes awake, Yes oriented to person, Yes oriented to place and Yes oriented to time HENMT: COMMON NORMALS: normocephalic, atraumatic, hearing grossly normal bilaterally, external ears normal, EAC's normal, Normal external nose present, Normal nasal mucous membranes and turbinates present, moist oral mucous membranes, oropharynx normal, dentition normal and gingiva normal HEAD & SCALP: normal to inspection, normocephalic and atraumatic FACE & SINUS: normal facial exam and sinuses nontender NOSE: Normal external nose present and Normal nasal mucous membranes and turbinates present EXTERNAL EAR: Yes external ears normal, Yes mastoids normal and Yes no periauricular adenopathy EXTERNAL AUDITORY CANAL: EAC's normal TYMPANIC MEMBRANE: TM normal on the left and TM abnormal TM laterality: right Details: dull, effusion, erythematous, loss of landmarks and retracted MOUTH: Normal oral and palatal mucosa present, lip normal and tongue normal THROAT: posterior oropharynx normal, tonsils normal and uvula midline Eye: GENERAL EYE: appearance normal, both eyes and all related structures Neck/C-Spine: COMMON NORMALS: full ROM, no lymphadenopathy and no meningeal signs GENERAL: Yes normal visual inspection Neuro: KELSIE COMA SCALE: document GCS findings [place] coma scale eye opening: Spontaneous Kelsie coma scale verbal response: Orientated [place] coma scale motor response: Obey commands Kelsie coma scale total score: 15 COMMON NORMALS: patient oriented x3, CN's II-XII intact bilaterally, moves all extremities, no focal motor deficits and no sensory deficits noted SENSORIUM/ORIENTATION: Yes alert, Yes oriented to person, Yes oriented to place and Yes oriented to time MENINGEAL SIGNS: Yes no meningeal signs Skin: COMMON NORMALS: no rashes or lesions noted GENERAL SKIN EXAM: no rashes or lesions noted Course Vital Signs: Vital signs: Vital Signs Temperature 97.4 F L 09/10/21 00:11 Pulse Rate 86 09/10/21 00:11 Respiratory Rate 20 H 09/10/21 00:11 Blood Pressure 143/88 09/10/21 00:11 Pulse Oximetry 97 09/10/21 00:11 MDM - Ear Medical Decision Making Patient has a dull and erythematous retracted TM with fluid. I don't visualize an otitis externa. Will go ahead and place on abx and have him follow up with PCP this week if he doesn't seem to be improving. Discharge Plan Discharge Patient Disposition: Home Clinical Impression: Right otitis media Qualifiers: Otitis media type: suppurative Chronicity: acute Recurrence: non-recurrent Spontaneous tympanic membrane rupture: without spontaneous rupture Qualified Code(s): H66.001 - Acute suppurative otitis media without spontaneous rupture of ear drum, right ear Condition: Stable Prescriptions: New amoxicillin-pot clavulanate 875-125 mg tablet 1 tab PO BID Qty: 14 0RF No Action loratadine 10 mg tablet 10 mg PO DAILY PRN (Reason: allergy symptoms) 30 Days Qty: 30 5RF ibuprofen 800 mg tablet 800 mg PO Q8H PRN (Reason: pain) 30 Days Qty: 90 5RF levothyroxine 112 mcg tablet 224 mcg PO DAILY 30 Days Qty: 60 2RF pantoprazole 40 mg tablet,delayed release (DR/EC) See Rx Instructions .ROUTE .COMPLEX Qty: 90 3RF Dose Instruction: Take 1 tablet by mouth once daily Rx Instructions: Take 1 tablet by mouth once daily magnesium oxide 400 mg magnesium tablet 400 mg PO DAILY 0RF Label Comments: pt reports not taking this med zinc 50 mg tablet 50 mg PO DAILY 0RF Label Comments: pt reports not taking this med fluticasone propionate 50 mcg/actuation spray,suspension See Rx Instructions .ROUTE .COMPLEX Qty: 16 0RF Dose Instruction: Use 1 spray(s) in each nostril once daily Rx Instructions: Use 1 spray(s) in each nostril once daily aripiprazole 10 mg tablet 10 mg PO BID 30 Days Qty: 60 3RF fluoxetine 20 mg capsule 20 mg PO DAILY 30 Days Qty: 30 3RF paliperidone palmitate 234 mg/1.5 mL syringe 234 mg IM Q30D 30 Days Qty: 1.5 2RF dexamethasone 2 mg tablet 6 mg PO DAILY 5 Days Qty: 15 0RF oseltamivir [Tamiflu] 75 mg capsule 75 mg PO BID 5 Days Qty: 10 0RF albuterol sulfate 90 mcg/actuation HFA aerosol inhaler 2 puff inhalation Q6H PRN (Reason: shortness of breath or wheezing) Qty: 8.5 0RF [id number] [Bromfed DM] 2-30-10 mg/5 mL syrup 7.5 ml PO Q6H PRN (Reason: cold symptoms) Qty: 160 0RF ondansetron 4 mg tablet,disintegrating 4 mg PO Q6H PRN (Reason: nausea and vomiting) Qty: 12 0RF Rx Instructions: 340b please famotidine 20 mg tablet See Rx Instructions .ROUTE .COMPLEX Qty: 60 0RF Dose Instruction: Take 1 tablet by mouth twice daily Rx Instructions: Take 1 tablet by mouth twice daily losartan 50 mg tablet See Rx Instructions .ROUTE .COMPLEX 30 Days Qty: 30 0RF Dose Instruction: Take 1 tablet by mouth once daily for 90 days Rx Instructions: Take 1 tablet by mouth once daily docusate sodium 100 mg capsule 100 mg PO BID PRN (Reason: CONSTIPATION) 0RF Discharge Orders: Discharge ED (Routine); Ordered 09/10/21 Ordered By: Lucina Do Referrals: Odalys Matthews MD [Primary Care Provider] - Coding Level of Care Code ED Rn Intake for Bettye Doshi
[2021-09-10 00:58] VITALS: BP 143/88; PULSE 80; RESP 16; O2SAT 98
== END 2021-09-10 00:59 | disposition home or self-care (01) ==
PROVIDERS: Emergency Provider Physician Assistant; PCP Family Medicine
DX: H66.001 Acute suppurative otitis media without spontaneous rupture of ear drum, right ear (principal)
CPT/HCPCS: 99283

== ENCOUNTER → 2021-09-12 11:13 | Outpatient (BNVA) | payer MEDICARE, OTHER, SELFPAY | PROVIDERS: PCP Family Medicine; Visit Provider Family Medicine | DX: I10 Essential (primary) hypertension (principal); H66.001 Acute suppurative otitis media without spontaneous rupture of ear drum, right ear; E03.9 Hypothyroidism, unspecified; Z51.81 Encounter for therapeutic drug level monitoring; H60.90 Unspecified otitis externa, unspecified ear | CPT/HCPCS: 80053; 84439; 84443; 84481; 85025 ==

== ENCOUNTER → 2022-01-29 18:37 | Outpatient (BNVA) | payer MEDICARE, SELFPAY | PROVIDERS: PCP Family Medicine; Visit Provider Nurse Practitioner Family | DX: R35.0 Frequency of micturition (principal) | CPT/HCPCS: 81000; 87086 ==

== ENCOUNTER → 2022-02-14 13:53 | Outpatient (BNVA) | payer MEDICARE, SELFPAY | PROVIDERS: PCP Family Medicine; Visit Provider Family Medicine | DX: I10 Essential (primary) hypertension (principal); E03.9 Hypothyroidism, unspecified; Z51.81 Encounter for therapeutic drug level monitoring; K21.9 Gastro-esophageal reflux disease without esophagitis; F20.3 Undifferentiated schizophrenia; J30.2 Other seasonal allergic rhinitis; K20.90 Esophagitis, unspecified without bleeding; Z79.899 Other long term (current) drug therapy; H69.81 Other specified disorders of Eustachian tube, right ear | CPT/HCPCS: 80053; 84443; 85025 ==

== ENCOUNTER → 2022-03-12 11:49 | Outpatient (BNVA) | payer MEDICARE, SELFPAY | PROVIDERS: PCP Family Medicine; Visit Provider Surgery | DX: K21.9 Gastro-esophageal reflux disease without esophagitis (principal); K92.0 Hematemesis | CPT/HCPCS: 99213 ==

== ENCOUNTER → 2022-03-22 16:41 | Outpatient (BNVA) | payer MEDICARE, SELFPAY | PROVIDERS: PCP Family Medicine; Visit Provider Emergency Medicine | DX: R68.89 Other general symptoms and signs (principal); J10.1 Influenza due to other identified influenza virus with other respiratory manifestations | CPT/HCPCS: 87400; 87426 ==

== ENCOUNTER → 2022-04-22 08:51 | Outpatient (BNVA) | payer MEDICARE, SELFPAY | PROVIDERS: PCP Family Medicine; Visit Provider Otolaryngology | DX: Z71.1 Person with feared health complaint in whom no diagnosis is made (principal) | CPT/HCPCS: 99202; 99203 ==

== ENCOUNTER 2022-04-26 07:18 | Day surgery (SDC) | payer MEDICARE, SELFPAY ==
[2022-04-24 13:35] VITALS: BMI 34.8
[2022-04-26 07:41] VITALS: BP 128/79; PULSE 86; RESP 18; TEMP 36.6; O2SAT 96
[2022-04-26] MEDS: sodium chloride 0.9% 1,000 ML 30 ML IV (07:50)
--- NOTE | 2022-04-26 08:14 | P.ANESASSM_ITS ---
Pre-Anesthetic Assessment Height/Weight: Height 1.8 m Weight 113.398 kg Temp Pulse Resp BP Pulse Ox O2 Del Method 97.9 F 86 18 128/79 96 04/26/22 07:41 04/26/22 07:41 04/26/22 07:41 04/26/22 07:41 04/26/22 07:41 04/26/22 07:41 Preop Diagnosis: Hematemesis Operation Date: 04/26/22 09:00 Proposed Procedures p [id number] egd K21.9(Not Applicable) - Bala Weathers DO Familial anesthetic complications: none Last intake: Intake Last Liquid Date 04/25/22 Last Liquid Time 22:00 Last Solid Date 04/25/22 Last Solid Time 19:00 Social No alcohol and No tobacco (quit 3 weeks prior.) Airway Submandibular: within normal limits Cervical ROM: within normal limits Mallampati: Class I Dentition: full Pulmonary None reported CV/HEM Hypertension None reported Hepatic None reported GI Gastroesophageal Reflux Disease Metabolic Hyperlipidemia and Thyroid Disease [facility] [place]/sk None reported Neuropsych Anxiety Schizophrenia Anesthetic Plan ASA status: 2 Medications/Allergies Home Medications Medication Instructions Recorded Confirmed Last Taken Type docusate sodium 100 mg capsule 100 mg PO BID PRN CONSTIPATION 02/18/21 04/26/22 Unknown History zinc 50 mg tablet 50 mg PO DAILY 04/18/21 04/26/22 04/24/22 History vitamin B complex (B 1 tab PO DAILY 09/23/21 04/24/22 04/25/22 History Complex-Vitamin B12 tablet) famotidine 20 mg tablet 20 mg PO BID 90 days #180 tabs 02/14/22 04/24/22 04/25/22 Rx ibuprofen 800 mg tablet 800 mg PO Q8H PRN pain 30 days #90 02/14/22 04/24/22 04/24/22 Rx tabs levothyroxine 112 mcg tablet 224 mcg PO DAILY 90 days #180 tabs 02/14/22 0 04/24/22 04/25/22 Rx loratadine 10 mg tablet 10 mg PO DAILY PRN allergy 02/14/22 04/26/22 04/24/22 Rx symptoms 90 days #90 tabs buspirone 15 mg tablet 15 mg PO DAILY PRN anxiety 30 days 03/11/22 04/24/22 04/25/22 Rx #30 tabs fluoxetine 20 mg capsule 60 mg PO DAILY 30 days #90 caps 03/11/22 04/24/22 04/25/22 Rx losartan 50 mg tablet 50 mg PO DAILY 04/24/22 04/24/22 04/25/22 History paliperidone palm (3-month) 819 819 mg IM .q 3 months 04/24/22 04/26/22 03/14/22 History mg/2.63 mL intramuscular syringe (Invega Trinza) pantoprazole 40 mg tablet,delayed 40 mg PO DAILY 04/24/22 04/24/22 04/25/22 History release Allergies Allergy/AdvReac Type Severity Reaction Status Date / Time quetiapine [From Seroquel] AdvReac ADR-Anxiety Verified 04/26/22 07:48 Current Medications Generic Name Dose Route Start Last Admin Trade Name Freq PRN Reason Stop Dose Admin Sodium Chloride 1,000 mls @ 30 mls/hr 04/26/22 07:30 04/26/22 07:50 Sodium Chloride 0.9% IV 04/27/22 07:29 30 mls/hr .Q24H PRANEETH Administration PFSH Anesthesia Medical History Eustachian tube dysfunction Frequent loose stools ROSCOE (generalized anxiety disorder) GERD (gastroesophageal reflux disease) Heartburn Hiatal hernia Hypertension Side effect to MAGUE Hypothyroid Psychiatric care Schizophrenia Seasonal allergies Smoking Surgical History History of colonoscopy History of esophagogastroduodenoscopy (EGD) Family History Grandfather Heart disease 3 blocked arteries Denies family history of Anesthesia complication Bleeding disorder Social History Smoking and tobacco status: current every day smoker cigarettes Alcohol intake: never Desire information about alcohol rehabilitation?: No Desire information about substance/drug rehabilitation?: No Caregiver/support person: Yes Lives independently: No Household members: spouse and children History of recent travel: No Current gender identity: Male Data Anesthesia Cardiac Studies: No Data to Display
--- NOTE | 2022-04-26 08:34 | PM.HP ---
Providers/Chief Complaint Primary Care Provider: Odalys Matthews MD Chief Complaint: gastro-esophageal reflux disease w/o esophagitis History of Present Illness Bc Chao is a 41 year old male here for EGD Medications/Allergies Home Medications Medication Instructions Recorded Confirmed Last Taken Type docusate sodium 100 mg capsule 100 mg PO BID PRN CONSTIPATION 02/18/21 04/26/22 Unknown History zinc 50 mg tablet 50 mg PO DAILY 04/18/21 04/26/22 04/24/22 History vitamin B complex (B 1 tab PO DAILY 09/23/21 04/24/22 04/25/22 History Complex-Vitamin B12 tablet) famotidine 20 mg tablet 20 mg PO BID 90 days #180 tabs 02/14/22 04/24/22 04/25/22 Rx ibuprofen 800 mg tablet 800 mg PO Q8H PRN pain 30 days #90 02/14/22 04/24/22 04/24/22 Rx tabs levothyroxine 112 mcg tablet 224 mcg PO DAILY 90 days #180 tabs 02/14/22 04/24/22 04/25/22 Rx loratadine 10 mg tablet 10 mg PO DAILY PRN allergy 02/14/22 04/26/22 04/24/22 Rx symptoms 90 days #90 tabs buspirone 15 mg tablet 15 mg PO DAILY PRN anxiety 30 days 03/11/22 04/24/22 04/25/22 Rx #30 tabs fluoxetine 20 mg capsule 60 mg PO DAILY 30 days #90 caps 03/11/22 04/24/22 04/25/22 Rx losartan 50 mg tablet 50 mg PO DAILY 04/24/22 04/24/22 04/25/22 History paliperidone palm (3-month) 819 819 mg IM .q 3 months 04/24/22 04/26/22 03/14/22 History mg/2.63 mL intramuscular syringe (Invega Trinza) pantoprazole 40 mg tablet,delayed 40 mg PO DAILY 04/24/22 04/24/22 04/25/22 History release Allergies Allergy/AdvReac Type Severity Reaction Status Date / Time quetiapine [From Seroquel] AdvReac ADR-Anxiety Verified 04/26/22 07:48 PFSH Acute PFSH: Medical History Eustachian tube dysfunction Frequent loose stools ROSCOE (generalized anxiety disorder) GERD (gastroesophageal reflux disease) Heartburn Hiatal hernia Hypertension Side effect to MAGUE Hypothyroid Psychiatric care Schizophrenia Seasonal allergies Smoking Surgical History History of colonoscopy History of esophagogastroduodenoscopy (EGD) Family History Grandfather Heart disease 3 blocked arteries Denies family history of Anesthesia complication Bleeding disorder Social History Smoking and tobacco status: current every day smoker cigarettes Alcohol intake: never Desire information about alcohol rehabilitation?: No Desire information about substance/drug rehabilitation?: No Caregiver/support person: Yes Lives independently: No Household members: spouse and children History of recent travel: No Current gender identity: Male Vitals/I&O/Wt Last Vital Signs Temp 97.9 F 04/26/22 07:41 Pulse 86 04/26/22 07:41 Resp 18 04/26/22 07:41 BP 128/79 04/26/22 07:41 Pulse Ox 96 04/26/22 07:41 O2 Del Method 04/26/22 07:41 Weight last 48 hrs Weight 250 lb A&P Assessment and plan (1) GERD (gastroesophageal reflux disease): Qualifiers: Esophagitis presence: without esophagitis Qualified Code(s): K21.9 - Gastro-esophageal reflux disease without esophagitis Plan EGD Attestations Medical Necessity Statement*: Home Coding Level of Care Code Acute Code for g Fwd Diagnoses GERD (gastroesophageal reflux disease) K21.9 Esophagitis presence: without esophagitis
[2022-04-26 08:48] VITALS: BP 105/69; PULSE 74; RESP 14; TEMP 36.2; O2SAT 93
[2022-04-26 09:02] VITALS: BP 105/71; PULSE 64; RESP 16; O2SAT 98
--- NOTE | 2022-04-26 19:39 | ANE.PACU2 ---
Inpatient post-anesthesia follow up: Airway intact: Yes Vital signs: Temperature 97.1 F Pulse Rate 64 Respiratory Rate 16 Blood Pressure 105/71 Pulse Oximetry 98 Oxygen Delivery Me thod Room Air Oxygen Flow Rate Fraction of Inspir ed Oxygen Hydration adequate: Yes Nausea and vomiting: No Pain level: 1 Mental status: Baseline
== END 2022-04-26 09:20 | disposition home or self-care (01) ==
PROVIDERS: PCP Family Medicine; Visit Provider Surgery
PROC: 0DJ08ZZ Inspection of Upper Intestinal Tract, Via Natural or Artificial Opening Endoscopic (ICD-10-PCS; CPT 43235; principal; 2022-04-26 09:00)
DX: K21.9 Gastro-esophageal reflux disease without esophagitis (principal); K29.80 Duodenitis without bleeding; K29.50 Unspecified chronic gastritis without bleeding; B96.81 Helicobacter pylori [H. pylori] as the cause of diseases classified elsewhere; F41.1 Generalized anxiety disorder; I10 Essential (primary) hypertension; E03.9 Hypothyroidism, unspecified; F17.210 Nicotine dependence, cigarettes, uncomplicated; E78.5 Hyperlipidemia, unspecified
CPT/HCPCS: 43239; 88305; J7030

== ENCOUNTER → 2022-06-25 09:55 | Outpatient (BNVA) | payer MEDICARE, SELFPAY | PROVIDERS: PCP Family Medicine; Visit Provider Surgery | DX: K29.70 Gastritis, unspecified, without bleeding (principal); B96.81 Helicobacter pylori [H. pylori] as the cause of diseases classified elsewhere | CPT/HCPCS: 99024; 99212 ==

== ENCOUNTER → 2022-09-16 10:58 | Outpatient (BNVA) | payer MEDICARE, SELFPAY | PROVIDERS: PCP Family Medicine; Visit Provider Family Medicine | DX: E03.9 Hypothyroidism, unspecified (principal); I10 Essential (primary) hypertension; K21.9 Gastro-esophageal reflux disease without esophagitis; F20.3 Undifferentiated schizophrenia; J01.90 Acute sinusitis, unspecified; B96.89 Other specified bacterial agents as the cause of diseases classified elsewhere; B35.1 Tinea unguium; Z51.81 Encounter for therapeutic drug level monitoring; Z79.899 Other long term (current) drug therapy | CPT/HCPCS: 80053; 80061; 83036; 84439; 84443; 84481 ==

== ENCOUNTER → 2022-11-12 12:08 | Outpatient (BNVA) | payer MEDICARE, SELFPAY | PROVIDERS: PCP Family Medicine; Visit Provider Nurse Practitioner Family | DX: R35.0 Frequency of micturition (principal); K29.50 Unspecified chronic gastritis without bleeding; K21.9 Gastro-esophageal reflux disease without esophagitis | CPT/HCPCS: 81000; 87086 ==

== ENCOUNTER → 2023-03-04 13:32 | Outpatient (BNVA) | payer MEDICARE, SELFPAY | PROVIDERS: PCP Family Medicine; Visit Provider Psychiatry & Neurology Psychiatry | DX: Z79.899 Other long term (current) drug therapy (principal); F20.9 Schizophrenia, unspecified | CPT/HCPCS: 80053; 85025 ==

== ENCOUNTER → 2023-03-12 13:16 | Outpatient (BNVA) | payer MEDICARE, SELFPAY | PROVIDERS: PCP Family Medicine; Referring Provider Psychiatry & Neurology Psychiatry; Visit Provider Psychiatry & Neurology Psychiatry | DX: Z79.899 Other long term (current) drug therapy (principal) | CPT/HCPCS: 85025 ==

== ENCOUNTER → 2023-03-20 12:18 | Outpatient (BNVA) | payer MEDICARE, SELFPAY | PROVIDERS: PCP Family Medicine; Visit Provider Psychiatry & Neurology Psychiatry | DX: E03.9 Hypothyroidism, unspecified (principal); I10 Essential (primary) hypertension; E87.1 Hypo-osmolality and hyponatremia; F20.3 Undifferentiated schizophrenia | CPT/HCPCS: 80053; 84439; 84443; 84481; 85025 ==

== ENCOUNTER → 2023-03-26 15:18 | Outpatient (BNVA) | payer MEDICARE, SELFPAY | PROVIDERS: PCP Family Medicine; Visit Provider Psychiatry & Neurology Psychiatry | DX: Z79.899 Other long term (current) drug therapy (principal); F25.0 Schizoaffective disorder, bipolar type; E87.1 Hypo-osmolality and hyponatremia; F41.1 Generalized anxiety disorder; F20.9 Schizophrenia, unspecified | CPT/HCPCS: 80048; 85025 ==

== ENCOUNTER → 2023-04-02 11:42 | Outpatient (BNVA) | payer MEDICARE, SELFPAY | PROVIDERS: PCP Family Medicine; Visit Provider Psychiatry & Neurology Psychiatry | DX: Z79.899 Other long term (current) drug therapy (principal); F25.0 Schizoaffective disorder, bipolar type | CPT/HCPCS: 80053; 85025 ==

== ENCOUNTER → 2023-04-09 12:15 | Outpatient (BNVA) | payer MEDICARE, SELFPAY | PROVIDERS: PCP Family Medicine; Visit Provider Psychiatry & Neurology Psychiatry | DX: F20.9 Schizophrenia, unspecified (principal); Z79.899 Other long term (current) drug therapy; F25.0 Schizoaffective disorder, bipolar type | CPT/HCPCS: 80048; 85025 ==

== ENCOUNTER → 2023-04-16 11:25 | Outpatient (BNVA) | payer MEDICARE, SELFPAY | PROVIDERS: PCP Family Medicine; Visit Provider Psychiatry & Neurology Psychiatry | DX: Z79.899 Other long term (current) drug therapy (principal); E87.1 Hypo-osmolality and hyponatremia; F25.0 Schizoaffective disorder, bipolar type; F41.1 Generalized anxiety disorder | CPT/HCPCS: 80048; 85025 ==

== ENCOUNTER → 2023-04-23 13:02 | Outpatient (BNVA) | payer MEDICARE, SELFPAY | PROVIDERS: PCP Family Medicine; Visit Provider Psychiatry & Neurology Psychiatry | DX: Z79.899 Other long term (current) drug therapy (principal); F25.0 Schizoaffective disorder, bipolar type | CPT/HCPCS: 85025 ==

== ENCOUNTER → 2023-04-30 13:14 | Outpatient (BNVA) | payer MEDICARE, SELFPAY | PROVIDERS: PCP Family Medicine; Visit Provider Psychiatry & Neurology Psychiatry | DX: Z79.899 Other long term (current) drug therapy (principal); F20.9 Schizophrenia, unspecified; F25.0 Schizoaffective disorder, bipolar type; F41.1 Generalized anxiety disorder | CPT/HCPCS: 85025 ==

== ENCOUNTER → 2023-05-07 13:11 | Outpatient (BNVA) | payer MEDICARE, SELFPAY | PROVIDERS: PCP Family Medicine; Visit Provider Psychiatry & Neurology Psychiatry | DX: Z79.899 Other long term (current) drug therapy (principal) | CPT/HCPCS: 85025 ==

== ENCOUNTER → 2023-05-14 13:32 | Outpatient (BNVA) | payer MEDICARE, SELFPAY | PROVIDERS: PCP Family Medicine; Visit Provider Psychiatry & Neurology Psychiatry | DX: Z79.899 Other long term (current) drug therapy (principal); F20.9 Schizophrenia, unspecified | CPT/HCPCS: 85025 ==

== ENCOUNTER → 2023-05-21 09:13 | Outpatient (BNVA) | payer MEDICARE, SELFPAY | PROVIDERS: PCP Family Medicine; Referring Provider Family Medicine; Visit Provider Internal Medicine | DX: E55.9 Vitamin D deficiency, unspecified (principal); E03.9 Hypothyroidism, unspecified; I10 Essential (primary) hypertension; K29.50 Unspecified chronic gastritis without bleeding; A04.8 Other specified bacterial intestinal infections; R19.5 Other fecal abnormalities; E87.1 Hypo-osmolality and hyponatremia; Z79.890 Hormone replacement therapy | CPT/HCPCS: 36415; 80048; 83690; 84439; 84443; 85025; 99204 ==

== ENCOUNTER → 2023-05-28 13:04 | Outpatient (BNVA) | payer MEDICARE, SELFPAY | PROVIDERS: PCP Family Medicine; Visit Provider Psychiatry & Neurology Psychiatry | DX: Z79.899 Other long term (current) drug therapy (principal); F20.9 Schizophrenia, unspecified | CPT/HCPCS: 85025 ==

== ENCOUNTER → 2023-06-04 13:09 | Outpatient (BNVA) | payer MEDICARE, SELFPAY | PROVIDERS: PCP Family Medicine; Visit Provider Psychiatry & Neurology Psychiatry | DX: Z79.899 Other long term (current) drug therapy (principal) | CPT/HCPCS: 80053; 85025 ==

== ENCOUNTER → 2023-06-11 13:11 | Outpatient (BNVA) | payer MEDICARE, SELFPAY | PROVIDERS: PCP Family Medicine; Visit Provider Psychiatry & Neurology Psychiatry | DX: Z79.899 Other long term (current) drug therapy (principal) | CPT/HCPCS: 85025 ==

== ENCOUNTER → 2023-06-19 09:54 | Outpatient (BNVA) | payer MEDICARE, SELFPAY | PROVIDERS: PCP Family Medicine; Visit Provider Psychiatry & Neurology Psychiatry | DX: Z79.899 Other long term (current) drug therapy (principal) | CPT/HCPCS: 85025 ==

== ENCOUNTER → 2023-06-26 13:46 | Outpatient (BNVA) | payer MEDICARE, SELFPAY | PROVIDERS: PCP Family Medicine; Visit Provider Psychiatry & Neurology Psychiatry | DX: Z79.899 Other long term (current) drug therapy (principal) | CPT/HCPCS: 82728; 83540; 83550; 85025 ==

== ENCOUNTER → 2023-07-03 13:51 | Outpatient (BNVA) | payer MEDICARE, SELFPAY | PROVIDERS: PCP Family Medicine; Visit Provider Psychiatry & Neurology Psychiatry | DX: Z79.899 Other long term (current) drug therapy (principal) | CPT/HCPCS: 85025 ==

== ENCOUNTER → 2023-07-14 12:15 | Outpatient (BNVA) | payer MEDICARE, SELFPAY | PROVIDERS: PCP Family Medicine; Visit Provider Family Medicine | DX: H60.90 Unspecified otitis externa, unspecified ear (principal); A04.8 Other specified bacterial intestinal infections; K29.70 Gastritis, unspecified, without bleeding; B96.81 Helicobacter pylori [H. pylori] as the cause of diseases classified elsewhere; G44.219 Episodic tension-type headache, not intractable; K21.9 Gastro-esophageal reflux disease without esophagitis; F20.3 Undifferentiated schizophrenia; H60.313 Diffuse otitis externa, bilateral; Z51.81 Encounter for therapeutic drug level monitoring; D50.0 Iron deficiency anemia secondary to blood loss (chronic) | CPT/HCPCS: 85025 ==

== ENCOUNTER → 2023-07-24 11:05 | Outpatient (BNVA) | payer MEDICARE, SELFPAY | PROVIDERS: PCP Family Medicine; Visit Provider Psychiatry & Neurology Psychiatry | DX: F20.9 Schizophrenia, unspecified (principal) | CPT/HCPCS: 85025 ==

== ENCOUNTER → 2023-08-04 12:44 | Outpatient (BNVA) | payer MEDICARE, SELFPAY | PROVIDERS: PCP Family Medicine; Visit Provider Psychiatry & Neurology Psychiatry | DX: Z79.899 Other long term (current) drug therapy (principal); F20.9 Schizophrenia, unspecified; F25.0 Schizoaffective disorder, bipolar type; F41.1 Generalized anxiety disorder | CPT/HCPCS: 85025 ==

== ENCOUNTER → 2023-08-15 09:48 | Outpatient (BNVA) | payer SELFPAY | PROVIDERS: PCP Family Medicine; Visit Provider Psychiatry & Neurology Psychiatry | DX: Z79.899 Other long term (current) drug therapy (principal); F25.0 Schizoaffective disorder, bipolar type; F41.1 Generalized anxiety disorder | CPT/HCPCS: 85025 ==

== ENCOUNTER → 2023-08-21 12:37 | Outpatient (BNVA) | payer OTHER, SELFPAY | PROVIDERS: PCP Family Medicine; Visit Provider Psychiatry & Neurology Psychiatry | DX: Z79.899 Other long term (current) drug therapy (principal); F20.9 Schizophrenia, unspecified | CPT/HCPCS: 85025 ==

== ENCOUNTER → 2023-08-28 13:51 | Outpatient (BNVA) | payer OTHER, SELFPAY | PROVIDERS: PCP Family Medicine; Referring Provider Psychiatry & Neurology Psychiatry; Visit Provider Psychiatry & Neurology Psychiatry | DX: F20.3 Undifferentiated schizophrenia (principal); Z79.899 Other long term (current) drug therapy | CPT/HCPCS: 85025 ==

== ENCOUNTER → 2023-09-05 09:29 | Outpatient (BNVA) | payer OTHER, SELFPAY | PROVIDERS: PCP Family Medicine; Referring Provider Psychiatry & Neurology Psychiatry; Visit Provider Psychiatry & Neurology Psychiatry | DX: Z79.899 Other long term (current) drug therapy (principal) | CPT/HCPCS: 85025 ==

== ENCOUNTER → 2023-09-12 10:07 | Outpatient (BNVA) | payer OTHER, SELFPAY | PROVIDERS: PCP Family Medicine; Visit Provider Psychiatry & Neurology Psychiatry | DX: Z79.899 Other long term (current) drug therapy (principal); F41.1 Generalized anxiety disorder; F20.9 Schizophrenia, unspecified; F25.0 Schizoaffective disorder, bipolar type | CPT/HCPCS: 85025 ==

== ENCOUNTER 2023-09-24 13:43 | Inpatient (IN) | payer OTHER, SELFPAY ==
[2023-09-24 13:47] VITALS: BP 138/86; PULSE 101; RESP 16; TEMP 36.3; O2SAT 98
--- NOTE | 2023-09-24 14:21 | ED.C_ITS ---
HPI - Psych 2 General: Chief Complaint: Psychiatric Symptoms Stated Complaint: no sleep, MHE Time Seen by Provider: 09/24/23 14:08 History of Present Illness: 43-year-old male patient with a history of schizophrenia comes in with difficulty sleeping and increasing in speech and talking to himself. Patient denies any visual or auditory hallucinations. Patient reports occasional headache. Patient reports some nausea and some changes in stools. Spouse believes that he needs to be admitted due to his change in his behavior and believes that his medications needs to be adjusted. Patient at this time does not really want to be admitted. Patient denies any homicidal or suicidal thoughts. Spouse believes the medications are not working like they should. Patient reports taking clozapine and Abilify. complaint: altered mental status Onset (ago): day(s) Duration: changing over time History of same: Yes Relieving factors: medication Exacerbating factors: none Associated psychiatric symptoms: racing thoughts Associated symptoms: Reports racing thoughts Review of Systems 2 General: Reports: 10 or more systems reviewed and unremarkable except in HPI and below PFSH ED 2 PFSH: Medical History Helicobacter pylori gastritis Eustachian tube dysfunction Psychiatric care Frequent loose stools Hiatal hernia Heartburn Seasonal allergies Hypertension Side effect to MAGUE ROSCOE (generalized anxiety disorder) Hypothyroid Smoking Schizophrenia GERD (gastroesophageal reflux disease) Surgical History History of colonoscopy History of esophagogastroduodenoscopy (EGD) Family History Grandfather Heart disease 3 blocked arteries Denies family history of Anesthesia complication Bleeding disorder Social History Smoking and tobacco/nicotine status: former use of tobacco/nicotine Alcohol intake: never Substance/Drug Use: never Caregiver/support person: Yes Lives independently: No Household members: spouse and children Current gender identity: Male Physical Exam 2 Const: COMMON NORMALS: alert GENERAL APPEARANCE: well kempt HENMT: COMMON NORMALS: normocephalic HEAD & SCALP: normocephalic Neck/C-Spine: COMMON NORMALS: full ROM Resp: COMMON NORMALS: normal respiratory effort and clear to auscultation bilaterally AUSCULTATION: clear to auscultation bilaterally Cardio: COMMON NORMALS: regular rate RATE: regular rate : COMMON NORMALS: Yes no CVA tenderness BLADDER/KIDNEY EXAM: Yes no CVA tenderness Back/Pelvis: COMMON NORMALS: no CVA tenderness and thoracic and lumbar spine normal to inspection Extremity: COMMON NORMALS: no pedal edema Neuro: SENSORIUM/ORIENTATION: Yes alert Psych: COMMON NORMALS: cooperative APPEARANCE: Yes well kempt ATTITUDE: Yes engaged SPEECH: Yes rapid MOOD & AFFECT: Yes anxious THOUGHT PROCESS: Circumstantial thought process present and Loose association thought process present ATTENTION/CONCENTRATION: Yes attention grossly intact M EFREM/COGNITION: Yes memory grossly intact and Yes cognition grossly intact I NSIGHT: Fair insight present (Psych) JUDGEMENT: Fair judgement present (Psych) Course 2 Vital Signs: Vital signs: Vital Signs Temperature 97.4 F L 09/24/23 13:47 Pulse Rate 101 H 09/24/23 13:47 Respiratory Rate 16 09/24/23 13:47 Blood Pressure 138/86 09/24/23 13:47 Pulse Oximetry 98 09/24/23 13:47 Oxygen Delivery Me thod Room Air 09/24/23 13:47 MDM - Psych Medical Decision Making 43-year-old male patient was brought in by spouse for concerns of increased and racing thoughts, and fast speech. Patient has also had some difficulty sleeping. Spouse did talk patient into coming in to be seen for further evaluation and treatment. Patient sees a Dr. Maharaj and Sung Womack that manages his psychiatric problems. Spouse states that the medication seems not to help at times. Spouse reports some difficulty with sleeping and increasing speech pattern and talking to himself. Patient reports history of schizophrenia denies bipolar disorder. Patient reports taking all his medications as directed. Patient denies any homicidal suicidal thoughts. Differential diagnosis includes but not limited to acute psychosis, schizophrenia, anxiety, adverse drug effect. 1525, sodium was 126. Discussed this with Dr. Orellana, attending ER physician, he agreed with plan for IV saline and then recheck sodium. Then he also recommended admission to the neuropsychiatric unit for further evaluation regarding patient's abnormal behavior, rapid thoughts, rapid speech, and insomnia. I reviewed this with Dr. Elmore, on-call psychiatrist, and he agreed with admission. We will infuse 1 L of normal saline and plan to admit to the neuropsychiatric unit after recheck of sodium. 1720, repeat sodium was 131 after 1 liter of normal saline. Reviewed this with Dr. Orellana who agreed to write orders for admission to neuropsychiatric unit. Patient reports understanding and agreed to plan. Lab Data 09/24/23 14:24 09/24/23 16:[address] 09/24/23 14:27 IMPRESSION: 1. No evidence of intracranial hemorrhage or mass effect. 2. Partial opacification of the LEFT greater than RIGHT mastoid air cells. 3. No acute intracranial findings. Laboratory Results WBC 7.47 10^3/uL (3.29-11.43) 09/24/23 14:24 RBC 4.57 10^6/uL (3.85-5.65) 09/24/23 14:24 Hgb 11.90 g/dL (11.27-16.99) 09/24/23 14:24 Hct 36.4 % (37-53) L 09/24/23 14:24 MCV 79.6 fl (82-101) L 09/24/23 14:24 MCH 26.0 pg (27-33) L 09/24/23 14:24 MCHC 32.7 g/dL (30-55) 09/24/23 14:24 RDW 16.4 % (12.1-15.1) H 09/24/23 14:24 Plt Count 273 10^3/cmm (157-399) 09/24/23 14:24 MPV 8.3 fL (7.4-10.4) 09/24/23 14:24 Neut % (Auto) 76.0 % 09/24/23 14:24 Lymph % (Auto) 15.9 % 09/24/23 14:24 Bradley % (Auto) 6.4 % 09/24/23 14:24 Eos % (Auto) 1.1 % 09/24/23 14:24 Baso % (Auto) 0.3 % 09/24/23 14:24 Neut # (Auto) 5.68 10^3/uL (1.8-7.7) 09/24/23 14:24 Lymph # (Auto) 1.2 10^3/uL (0.8-4.8) 09/24/23 14:24 Bradley # (Auto) 0.5 10^3/uL (0.2-0.9) 09/24/23 14:24 Eos # (Auto) 0.1 10^3/uL (0.0-0.8) 09/24/23 14:24 Baso # (Auto) 0.0 10^3/uL (0.0-0.1) 09/24/23 14:24 Nucleated RBC % (auto) 0 % 09/24/23 14:24 Nucleated RBCs # 0.0 /100WBC 09/24/23 14:24 Sodium 131 mmol/L (136-145) L 09/24/23 16:45 Potassium 4.0 mmol/L (3.5-5.1) 09/24/23 14:24 Chloride 91 mmol/L (98-107) L 09/24/23 14:24 Carbon Dioxide 22 mmol/L (22-29) 09/24/23 14:24 Anion Gap 17.0 (5-19) 09/24/23 14:24 BUN 5 mg/dL (6-20) L 09/24/23 14:24 Creatinine 0.9 mg/dL (0.7-1.2) 09/24/23 14:24 GFR Calculation 93.0 mL/min (90-130) 09/24/23 14:24 Glucose 108 mg/dL (65-115) 09/24/23 14:24 Calculated Osmolality 260 mOsm/kg (285-295) L 09/24/23 14:24 Calcium 8.9 mg/dL (8.5-10.5) 09/24/23 14:24 Total Bilirubin 0.3 mg/dL (0.15-1.2) 09/24/23 14:24 AST 22 U/L (0-40) 09/24/23 14:24 ALT 26 U/L (0-41) 09/24/23 14:24 Alkaline Phosphatase 74 U/L (40-130) 09/24/23 14:24 Total Protein 7.0 g/dL (6.6-8.7) 09/24/23 14:24 Albumin 4.5 g/dL (3.5-5.2) 09/24/23 14:24 Globulin 2.5 g/dL (1.3-4.6) 09/24/23 14:24 TSH 9.85 uIU/mL (0.27-4.20) H 09/24/23 14:24 Urine Color Yellow (Yellow) 09/24/23 14:22 Urine Appearance Clear (CLEAR) 09/24/23 14:22 Urine pH 7 (5-7) 09/24/23 14:22 Ur Specific [place] 1.005 (1.005-1.030) 09/24/23 14:22 Urine Protein Neg (Negative) 09/24/23 14:22 Urine Glucose (UA) Norm (Normal) 09/24/23 14:22 Urine Ketones Negative (Negative) 09/24/23 14:22 Urine Blood Neg (Negative) 09/24/23 14:22 Urine Nitrate Negative (Negative) 09/24/23 14:22 Urine Bilirubin Neg (Negative) 09/24/23 14:22 Urine Urobilinogen Neg mg/dL (Negative) 09/24/23 14:22 Ur Leukocyte Esterase Negative (Negative) 09/24/23 14:22 Salicylates < 0.3 mg/dL (3-10) L 09/24/23 14:24 Urine Opiates Screen Negative ng/mL (Negative) 09/24/23 14:22 Acetaminophen < 5.0 ug/mL (10-30) L 09/24/23 14:24 Ur Barbiturates Screen Negative ng/mL (Negative) 09/24/23 14:22 Ur Phencyclidine Scrn Negative ng/mL (Negative) 09/24/23 14:22 Ur Amphetamines Screen Negative ng/mL (Negative) 09/24/23 14:22 U Benzodiazepines Scrn Negative ng/mL (Negative) 09/24/23 14:22 Urine Cocaine Screen Negative ng/mL (Negative) 09/24/23 14:22 U Marijuana (THC) Screen Negative ng/mL (Negative) 09/24/23 14:22 Ethyl Alcohol < 10 mg/dL (0-10) 09/24/23 14:24 All radiology interpretation(s) finalized by discharge Discharge Plan Discharge Patient Disposition: Admitted As Inpatient Clinical Impression: Schizoaffective disorder, bipolar type, Acute hyponatremia Schizophrenia Qualifiers: Schizophrenia type: unspecified Qualified Code(s): F20.9 - Schizophrenia, unspecified Condition: Stable Coding Level of Care Code ED [employer] for [employer] Doshi
--- NOTE | 2023-09-24 14:27 | CT_ITS ---
WS: [id number] CT HEAD TECHNIQUE: Noncontrast CT of the head obtained from the skullbase to the vertex. CLINICAL INFORMATION: headaches COMPARISON: None. DLP: 1168.[address] scans at [facility] use at least one of these dose optimization techniques: automated e xposure control; mA and/or kV adjustment per patient size (includes targeted exams where dose is matc hed to clinical indication); or iterative reconstruction. FINDINGS: No evidence of intracranial hemorrhage or mass effect. Ventricular system and basal cisterns are berger nt. No extra-axial fluid collections. No evidence of mass or mass effect. Normal hallman-white different iation. Paranasal sinuses are well aerated. Partial opacification of the mastoid air cells. Normal visualized posterior nasopharynx. CT/CT head wo con* [id number] IMPRESSION: 1. No evidence of intracranial hemorrhage or mass effect. 2. Partial opacification of the LEFT greater than RIGHT mastoid air cells. 3. No acute intracranial findings.
[2023-09-24 14:31] LABS: Basophils % 0.3 %; Eosinophils # 0.1 10^3/uL (0.0-0.8); Eosinophils % 1.1 %; Hematocrit 36.4 % (37-53); Lymphocytes # 1.2 10^3/uL (0.8-4.8); Lymphocytes % 15.9 %; Mean Corpuscular HGB Conc 32.7 g/dL (30-55); Mean Corpuscular Volume 79.6 fl (82-101); Mean Platelet Volume 8.3 fL (7.4-10.4); Monocytes # 0.5 10^3/uL (0.2-0.9); Monocytes % 6.4 %; Neutrophils # 5.68 10^3/uL (1.8-7.7); Nucleated Red Blood Cells % 0 %; Platelet Count 273 10^3/cmm (157-399); Red Blood Count 4.57 10^6/uL (3.85-5.65); Red Cell Distribution Width 16.4 % (12.1-15.1); White Blood Count 7.47 10^3/uL (3.29-11.43)
[2023-09-24 14:36] LABS: Add Urine Microscopic? NO; Charge for UA Resulting for Rev
[2023-09-24 14:45] LABS: Bilirubin Urine Neg (Negative); Blood Urine Neg (Negative); Glucose Urine UA Norm (Normal); Ketones Urine Negative (Negative); Leukocyte Esterase Urine Negative (Negative); Nitrate Urine Negative (Negative); Protein Urine Neg (Negative); Specific Gravity, Urine 1.005 (1.005-1.030); Urine Appearance Clear (CLEAR); Urine Color Yellow (Yellow); Urobilinogen Urine Neg (Negative); pH Urine 7 (5-7)
[2023-09-24 14:50] LABS: Amphetamines Screen Urine Negative (Negative); Barbiturates Screen Urine Negative (Negative); Benzodiazepines Screen Urine Negative (Negative); Cocaine Screen Urine Negative (Negative); Opiate Screen Urine Negative (Negative); PCP Screen Urine Negative (Negative); THC Screen Urine Negative (Negative)
[2023-09-24 15:04] LABS: Alanine Aminotransferase 26 U/L (0-41); Albumin Level 4.5 g/dL (3.5-5.2); Alkaline Phosphatase 74 U/L (40-130); Aspartate Amino Transferase 22 U/L (0-40); Blood Urea Nitrogen 5 mg/dL (6-20); Calcium 8.9 mg/dL (8.5-10.5); Carbon Dioxide 22 mmol/L (22-29); Chloride 91 mmol/L (98-107); Creatinine Clr Calc Pharmacy 148.3026; Globulin 2.5 g/dL (1.3-4.6); Glucose 108 mg/dL (65-115); Osmolality Calculated 260 mOsm/kg (285-295); Sodium 126 mmol/L (136-145); Thyroid Stimulating Hormone 9.85 uIU/mL (0.27-4.20); Total Bilirubin 0.3 mg/dL (0.15-1.2)
[2023-09-24 15:05] LABS: Acetaminophen < 5.0 ug/mL (10-30); Alcohol Level < 10 mg/dL (0-10); Salicylate < 0.3 mg/dL (3-10)
[2023-09-24] MEDS: sodium chloride 0.9% 1,000 ML 999 ML IV (15:28)
[2023-09-24 17:11] LABS: Sodium 131 mmol/L (136-145)
[2023-09-24 17:45] VITALS: RESP 18
[2023-09-24 17:54] VITALS: BP 136/95; PULSE 84; RESP 18; TEMP 36.7; O2SAT 99
[2023-09-24 20:18] VITALS: BP 132/86; PULSE 99; RESP 17; TEMP 36.4; O2SAT 98
[2023-09-25 06:00] VITALS: BP 110/73; PULSE 81; RESP 18; TEMP 36.7; O2SAT 96
[2023-09-25] MEDS: levothyroxine 112 mcg Tablet 224 MCG PO (06:41)
[2023-09-25 07:58] VITALS: BP 117/82
[2023-09-25] MEDS: losartan 50 mg Tablet 100 MG PO (07:58)
[2023-09-25] MEDS: metoprolol succinate ER (24 HR) 25 mg Tablet PO (07:58)
--- NOTE | 2023-09-25 13:37 | P.NPUHP_ITS ---
Providers/Chief Complaint 2 Admitting Physician: Jorge Elmore MD Primary Care Provider: Odalys Matthews MD Chief Complaint: no sleep, MHE HPI NPU History of Present Illness Bc Chao is a 43 year old male who presented to the emergency department with the following report: Chief Complaint: Psychiatric Symptoms Stated Complaint: no sleep, MHE Time Seen by Provider: 09/24/23 14:08 History of Present Illness: 43-year-old male patient with a history of schizophrenia comes in with difficulty sleeping and increasing in speech and talking to himself. Patient denies any visual or auditory hallucinations. Patient reports occasional headache. Patient reports some nausea and some changes in stools. Spouse believes that he needs to be admitted due to his change in his behavior and believes that his medications needs to be adjusted. Patient at this time does not really want to be admitted. Patient denies any homicidal or suicidal thoughts. Spouse believes the medications are not working like they should. Patient reports taking clozapine and Abilify. MD complaint: altered mental status Onset (ago): day(s) Duration: changing over time History of same: Yes Relieving factors: medication Exacerbating factors: none Associated psychiatric symptoms: racing thoughts Associated symptoms: Reports racing thoughts. He was admitted to the neuropsychiatric unit for definitive treatment of those issues. He is known to the system through outpatient services as well as to this parts data writer through an inpatient visit in February 2021. He has had active care until recently but presents with difficulties related to his medications. An excerpt of his last hospitalization with this parts data writer discharge summary is included below for context. Extensive conversations identified significant discrepancies in his medications. He reported taking his medications as prescribed but his feeling tendencies show significant discrepancies and he reported not really being sure about what he was taking and then recently trying to get back to taking it as prescribed on the bottle but outside of the Clozaril there are significant concerns that he has been consistent with his medication. He denied significant issues but was respecting the fact that his spouse was noting behavioral changes. Given the significant medications he is on like Clozaril we discussed the importance of making sure that he is taking his medication as prescribed and see how he does over the next few days with medications taken at the appropriate doses as he was taking half of what his Prozac dose was possibly one fourth of what his Abilify dose was as well as other medications including physical medicine medications. Per his 02/21/2021 [facility] inpatient psychiatric discharge summary: Discharge Diagnosis (1) Psychosis: Status: Acute (2) Jesus Manuel: Status: Acute (3) Gastritis: Status: Acute (4) Gastric diverticulum: Status: Chronic (5) Frequent loose stools: Status: Acute Qualifiers: Diarrhea type: unspecified type Qualified Code(s): R19.7 - Diarrhea, unspecified (6) Hiatal hernia: Status: Acute (7) Vitamin D deficiency: Status: Acute (8) Seasonal allergies: Status: Acute (9) Hypertension: Status: Acute Qualifiers: Hypertension type: essential hypertension Qualified Code(s): I10 - Essential (primary) hypertension (10) ROSCOE (generalized anxiety disorder): Status: Acute (11) Hypothyroid: Status: Acute Qualifiers: Hypothyroidism type: acquired Qualified Code(s): E03.9 - Hypothyroidism, unspecified (12) Tobacco use: Status: Acute (13) Schizophrenia: Status: Acute Qualifiers: Schizophrenia type: undifferentiated schizophrenia Qualified Code(s): F20.3 - Undifferentiated schizophrenia (14) Bleeding hemorrhoids: Status: Acute (15) GERD (gastroesophageal reflux disease): Status: Acute Qualifiers: Esophagitis presence: without esophagitis Qualified Code(s): K21.9 - Gastro-esophageal reflux disease without esophagitis Reason for Visit Reason for Visit: MHE:TALKING TO SELF, NO SLEEP Brief History: History of Present Illness Bc Chao is a 40 year old male who presented to the emergency department with the following report: Chief complaint: Psychiatric Symptoms Stated complaint: MHE:TALKING TO SELF, NO SLEEP Time Seen by Provider: 02/18/21 15:04 History of Present Illness: HPI narrative: HPI: [40]yo patient w/ hx of anxiety, jesus manuel presenting for acute manic episode. On arrival, the patient is AAOx3 and cooperative with my evaluation. No focal complaints of chest pain, shortness of breath, palpitations, N/V, focal GI/ complaints. Currently denies SI/HI. No complaints of hallucinations. Onset: 3 days ago Duration: ongoing Location: home Severity: severe. He was admitted to the neuropsychiatric unit for definitive treatment of those issues. He presents today reporting that he has been hospitalized psychiatrically as a kid. Given his state of likely jesus manuel he struggled to stay on task or explain some aspects with clarity. But he reports between ages 17 and 19 he was hospitalized multiple times and it appears he may have had periods he was at a residential treatment facility. He reports he started having psychosis and at one point became mute due to his lack of trust and presence of paranoia. He endorses a long history of medications including Zyprexa, Seroquel Wellbutrin and Prozac. He reports that he has been on the Abilify injection for as long as he can remember. He reports has been effective until recently. He reports he stopped going to outpatient treatment facilities because he became so stable that his family doctor was able to prescribe for him and now things have changed and he is really worried. He endorses smoking less than a pack of cigarettes a day, denies alcohol, marijuana or any illicit drug use he reports he does have a past history of marijuana and some crack that he used very briefly he reports he did have a rehab stent as a child but that may have been confused with the RTF but he denies ever having a DUI. He denies any suicide attempts. But he reports that he seems to be entering a manic phase he had a period of days where he went 3 days without sleep he reports he been really hard on him and his reports he has been talking to himself more and more but he had previously been really stable. He reports increased pace of his speech feeling like he is on speed so to speak. We discussed the risk benefits and alternatives of a trial of Invega versus lithium and he understood and agreed to proceed as is documented in this note. Psychiatric history: As above. Substance abuse history: As above. Family history: He reports that there has been some mental health and addiction issues in his family but he denies any suicide attempts or completions in his family. Developmental history: He denies any issues with his or delivery, reports that he learned to walk and talk and met his developmental milestones on time, reports that when he went off to school he did not require speech therapy, learning support emotional support or special education classes. Psychosocial history: He reports that his parents were together when he was born but split early on and that he is the only product of that union. He reports he has 2 younger siblings a brother and a sister through his mother that are his half siblings and he is unaware of any children that would be his half siblings from his father. He reports his childhood was good and denied emotional physical or sexual abuse but he did report that his brother was taken by [facility] and that he was in placement but again he was unclear about RTF versus inpatient hospital versus placement by child protective services. He did not graduate from high school but he did get his GED and get some college. He endorses being a heterosexual with his longest relationship being 4 years. He reports he has been 1 time and never , he denies having any children, he denies being in the , and endorses being a Faith. 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 He currently lives in a house with his . Legal history: He denies any significant legal peril except for some things that may have happened in his youth. Medical history: He endorses some diverticulitis. Hospital Course Easily acclimated competencies provided. We started Invega 6 mg p.o. every morning and then started the Invega injection to be continued after discharge. He is already on the Abilify Maintena injection and we discussed him continuing both injectables but discussed working with his outpatient team to determine if he can take the Invega injection alone. However with his long history without missing an injection he may very well need both medications. We discussed the possibility of him staying longer however as a voluntary patient he was working with his to support him discharging and he was able to contract for safety outside the hospital prior to discharge. And his was supportive of them managing this at home together. During the hospitalization, patient had routine laboratory studies which were within normal limits except for few outliers. Additionally there was a general medical evaluation which was also within normal limits and revealed no new acute processes. Discharge Summary: At the time of discharge, lethality was denied and psychosis was resolving. Mood and anxiety were well managed. Patient endorsed a plan to avoid all drugs of abuse and follow-up with the aftercare recommendations of the treatment team. Patient was evaluated and deemed to be absent credible lethality, and had achieved improvement during this inpatient hospitalization, and identification but desired to be discharged and was a voluntary patient without clear criteria for a 96-hour hold so was discharged. Meds NPU Home Medications Medication Instructions Recorded Confirmed Last Taken Type loratadine 10 mg tablet 10 mg PO DAILY PRN allergy 02/14/22 09/24/23 04/24/22 Rx symptoms 90 days #90 tabs baclofen 20 mg tablet 20 mg PO TID PRN back pain #90 tabs 01/06/23 09/24/23 Unknown Rx fluticasone propionate 50 1 spray intranasal DAILY PRN 05/29/23 09/24/23 Unknown Rx mcg/actuation nasal allergy symptoms #16 grams spray,suspension losartan 100 mg tablet 100 mg PO DAILY 90 days #90 tabs 05/29/23 09/24/23 09/24/23 Rx metoprolol succinate 25 mg 25 mg PO DAILY 30 days #30 tabs 07/30/23 09/24/23 09/24/23 Rx tablet,extended release 24 hr atropine 1 % eye drops See Rx Instructions sublingual 08/01/23 09/24/23 Unknown Rx .COMPLEX #5 mL levothyroxine 112 mcg tablet 224 mcg (2 x 112 mcg) PO DAILY 90 08/28/23 09/24/23 09/24/23 Rx days #180 tabs buspirone 15 mg tablet 15 mg PO DAILY PRN anxiety 30 days 09/12/23 09/24/23 Unknown Rx #30 tabs clozapine 200 mg tablet 600 mg (3 x 200 mg) PO DAILY 30 09/12/23 09/24/23 09/24/23 Rx days #90 tabs aripiprazole 10 mg tablet 10 mg PO BID 09/24/23 09/24/23 09/24/23 History fluoxetine 40 mg capsule 40 mg PO DAILY 09/24/23 09/24/23 09/24/23 History mirtazapine 30 mg tablet 30 mg PO BEDTIME 09/24/23 09/24/23 09/23/23 History ohqbslyk-ksj-urdy-FA-Ca carb-vit K 1 tab PO DAILY 09/24/23 09/24/23 Unknown History 18 mg iron-400 mcg-500 mg tablet (One-A-Day Womens Formula) pantoprazole 40 mg tablet,delayed 40 mg PO BID PRN Heartburn 09/24/23 09/24/23 Unknown History release sucralfate 1 gram tablet See Rx Instructions .Route 09/25/23 09/25/23 Unknown Rx .COMPLEX #60 tabs Allergies Allergy/AdvReac Type Severity Reaction Status Date / Time quetiapine [From Seroquel] AdvReac ADR-Anxiety Verified 09/24/23 13:59 PFSH NPU 2 PFSH: Medical History Helicobacter pylori gastritis Eustachian tube dysfunction Psychiatric care Frequent loose stools Hiatal hernia Heartburn Seasonal allergies Hypertension Side effect to MAGUE ROSCOE (generalized anxiety disorder) Hypothyroid Smoking Schizophrenia GERD (gastroesophageal reflux disease) Surgical History History of colonoscopy History of esophagogastroduodenoscopy (EGD) Family History Grandfather Heart disease 3 blocked arteries Denies family history of Anesthesia complication Bleeding disorder Social History Smoking and tobacco/nicotine status: former use of tobacco/nicotine Alcohol intake: never Substance/Drug Use: never Caregiver/support person: Yes Lives independently: No Household members: spouse and children Current gender identity: Male Mental Status Exam 2 MSE Comments: This is an obese versus morbidly obese white male in hospital scrubs on with limited grooming and eye contact. No abnormal movements except for psychomotor retardation. Cooperative with exam in mild distress. Speech was normal rate and volume. Mood described as okay I think, affect congruent but slightly subdued. Thought process organized. Thought content: Patient denied suicidal or homicidal ideation, there were no delusions reported or noted, but there were some reports odd thinking, he did report occasionally having some auditory and visual hallucinations. Attention and concentration were intact and memory appeared somewhat unreliable but none were formally tested. He is alert and oriented x3. Insight and judgment are limited, impulse control is limited. Vitals/I&O/Wt Last Vital Signs Temp 98.1 F 09/25/23 06:00 Pulse 81 09/25/23 06:00 Resp 18 09/25/23 06:00 BP 117/82 09/25/23 07:58 Pulse Ox 96 09/25/23 06:00 O2 Del Method Room Air 09/25/23 06:00 09/24/23 09/25/23 09/25/23 22:59 06:59 14:59 Intake Total 1000 / 1000 Balance 1000 / 1000 Weight last 48 hrs Weight 129.727 kg Data NPU 09/24/23 14:24 09/24/23 16:45 A&P Assessment and plan (1) FDC current use of clozapine: (2) Schizoaffective disorder, bipolar type: (3) Jesus Manuel: (4) Psychosis: (5) ROSCOE (generalized anxiety disorder): Plan This is a 43-year-old white male with a long history of schizoaffective disorder bipolar type versus bipolar disorder who presents with some changes in behavior that he is not necessarily seeing and the lack of effectiveness of his medication possibly secondary to medication adherence problems. 1. Continue current medication. Continue Clozaril, and restart the other medications at appropriate doses and then titrate to the dose he was supposed to be taking. 2. Encourage individual, group and milieu therapy. 3. Continue every 15 minute checks for safety. Involuntary Hold Information 2 96 Hour Hold: 96 Hour Involuntary Admission: No Attestations NPU 2 Medical Necessity Statement*: Inpatient hospitalization is medically necessary and the clinically appropriate intervention at this time. We will monitor medications and make changes as indicated. He will be in the hospital for over 2 midnights. Likely length of stay 4 to 6 days. Coding Level of Care Code Acute Code for Chg Fwd Diagnoses FDC current use of clozapine Z79.899 Schizoaffective disorder, bipolar type F25.0 Jesus Manuel F30.9 Psychosis F29 ROSCOE (generalized anxiety disorder) F41.1
[2023-09-25 14:00] VITALS: BP 139/88; PULSE 93; RESP 20; TEMP 36.8; O2SAT 97
[2023-09-25] MEDS: fluoxetine 20 mg Capsule 40 MG PO (14:45)
[2023-09-25] MEDS: cloZAPine 100 mg Tablet 600 MG PO (14:46)
[2023-09-25] MEDS: pantoprazole DR 40 mg Tablet PO (14:46)
[2023-09-25] MEDS: ARIPiprazole 10 mg Tablet PO (14:46)
[2023-09-25] MEDS: BuSPIRONE 10 mg Tablet 15 MG PO (14:46)
[2023-09-25] MEDS: mirtazapine 30 mg Tablet PO (20:57)
[2023-09-25] MEDS: polyethylene glycol 3350 Pkt 17 gm PO (21:03)
[2023-09-25 21:27] VITALS: BP 110/76; PULSE 93; RESP 16; TEMP 36.3; O2SAT 97
[2023-09-26 06:00] VITALS: BP 123/78; PULSE 69; RESP 16; TEMP 36.4; O2SAT 97
[2023-09-26] MEDS: levothyroxine 112 mcg Tablet 224 MCG PO (06:43)
--- NOTE | 2023-09-26 07:39 | P.NPUPN_ITS ---
Subjective NPU 2 Subjective: Patient presented today reporting that he is doing fine. He continues to report a desire to discharge and his was reportedly supportive of this even though she was the main determinant of him coming to the hospital in the first place. We discussed not liking the idea of him with leaving without us having a reasonable data set about his behavior patterns currently. Today he continues to report that he essentially never misses medication but this is after reporting yesterday that he had at 1 point not taken the medication for 3 months and then restarted it. He denies any side effects of the medication. Mental Status Exam 2 MSE Comments: This is an obese versus morbidly obese white male in hospital scrubs on with limited grooming and eye contact. No abnormal movements except for psychomotor retardation. Cooperative with exam in mild distress. Speech was normal rate and volume. Mood described as okay I think, affect congruent but slightly subdued. Thought process organized. Thought content: Patient denied suicidal or homicidal ideation, there were no delusions reported or noted, but there were some reports odd thinking, he did report occasionally having some auditory and visual hallucinations. Attention and concentration were intact and memory appeared somewhat unreliable but none were formally tested. He is alert and oriented x3. Insight and judgment are limited, impulse control is limited. 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 1. Continue current medication. Continue Clozaril, and restart the other medications at appropriate doses and then titrate to the dose he was supposed to be taking. 2. Encourage individual, group and milieu therapy. 3. Continue every 15 minute checks for safety. Involuntary Hold Information 2 96 Hour Hold: 96 Hour Involuntary Admission: No Attestations NPU 2 Medical Necessity Statement*: Inpatient hospitalization is medically necessary and the clinically appropriate intervention at this time. We will monitor medications and make changes as indicated. Likely length of stay 3-5 days. 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
[2023-09-26] MEDS: cloZAPine 100 mg Tablet 600 MG PO (08:31)
[2023-09-26] MEDS: fluoxetine 20 mg Capsule 40 MG PO (08:32)
[2023-09-26] MEDS: metoprolol succinate ER (24 HR) 25 mg Tablet PO (08:32)
[2023-09-26 08:33] VITALS: BP 132/94
[2023-09-26] MEDS: losartan 50 mg Tablet 100 MG PO (08:33)
[2023-09-26] MEDS: ARIPiprazole 10 mg Tablet PO (08:35)
[2023-09-26] MEDS: fluticasone nasal spray 16gm Btl 1 SPRAY NASAL (08:39)
--- NOTE | 2023-09-26 09:07 | PC.NURSE ---
During assessment, patient's speech was animated and mumbled. Patient is requesting that his clozaril be increased, that he feels manic. Patient stated that I need somelthing to slow down my mind. Patient cooperative. Patient held eye contact for a prolonged time period.
[2023-09-26 13:22] VITALS: BP 123/85; PULSE 96; RESP 16; TEMP 36.4; O2SAT 100
[2023-09-26 20:26] VITALS: BP 97/66; PULSE 80; RESP 16; O2SAT 93
[2023-09-26] MEDS: mirtazapine 30 mg Tablet PO (21:01)
[2023-09-27 06:00] VITALS: BP 123/62; PULSE 92; RESP 18; TEMP 36.4; O2SAT 95
[2023-09-27] MEDS: levothyroxine 112 mcg Tablet 224 MCG PO (06:01)
--- NOTE | 2023-09-27 08:10 | PC.NURSE ---
patient's speech was mumbled and excessive during morning admission. Patient stated that he has anxiety caused from being ready to leave. Patient denies SI, HI, AVH.
--- NOTE | 2023-09-27 08:11 | PC.NURSE ---
patient's speech was mumbled and excessive during morning admission. Patient stated that he has anxiety caused from being ready to leave. Patient denies SI, HI, AVH.
[2023-09-27] MEDS: cloZAPine 100 mg Tablet 600 MG PO (08:17)
[2023-09-27 08:18] VITALS: BP 131/92
[2023-09-27] MEDS: ARIPiprazole 10 mg Tablet PO (08:18)
[2023-09-27] MEDS: metoprolol succinate ER (24 HR) 25 mg Tablet PO (08:18)
[2023-09-27] MEDS: losartan 50 mg Tablet 100 MG PO (08:18)
[2023-09-27] MEDS: fluoxetine 20 mg Capsule 40 MG PO (08:18)
[2023-09-27] MEDS: hyDROXYzine 25 mg Capsule 50 MG PO (10:43)
[2023-09-27] MEDS: fluticasone nasal spray 16gm Btl 1 SPRAY NASAL (11:23)
[2023-09-27 14:00] VITALS: BP 129/89; PULSE 73; RESP 16; TEMP 36.6; O2SAT 98
[2023-09-27 15:45] LABS: Basophils % 0.5 %; Eosinophils # 0.2 10^3/uL (0.0-0.8); Eosinophils % 3.2 %; Hematocrit 31.5 % (37-53); Lymphocytes # 1.4 10^3/uL (0.8-4.8); Lymphocytes % 25.1 %; Mean Corpuscular HGB Conc 33.7 g/dL (30-55); Mean Corpuscular Hemoglobin 26.5 pg (27-33); Mean Corpuscular Volume 78.8 fl (82-101); Mean Platelet Volume 8.6 fL (7.4-10.4); Monocytes # 0.5 10^3/uL (0.2-0.9); Monocytes % 8.8 %; Neutrophils # 3.54 10^3/uL (1.8-7.7); Nucleated Red Blood Cells % 0 %; Platelet Count 254 10^3/cmm (157-399)
[2023-09-27 16:08] LABS: Alanine Aminotransferase 19 U/L (0-41); Albumin Level 4.2 g/dL (3.5-5.2); Alkaline Phosphatase 63 U/L (40-130); Anion Gap 14.6 (5-19); Aspartate Amino Transferase 14 U/L (0-40); Blood Urea Nitrogen 8 mg/dL (6-20); Calcium 8.5 mg/dL (8.5-10.5); Carbon Dioxide 25 mmol/L (22-29); Chloride 95 mmol/L (98-107); Creatinine Clr Calc Pharmacy 133.4724; Globulin 1.9 g/dL (1.3-4.6); Glomerular Filtration Rate 82.3 mL/min (90-130); Glucose 104 mg/dL (65-115); Osmolality Calculated 271 mOsm/kg (285-295); Potassium 3.6 mmol/L (3.5-5.1); Sodium 131 mmol/L (136-145); Total Bilirubin 0.2 mg/dL (0.15-1.2); Total Protein 6.1 g/dL (6.6-8.7)
--- NOTE | 2023-09-27 17:15 | W.PM.NPUDCS ---
Diagnoses at Discharge Discharge Diagnosis (1) custodial current use of clozapine: Status: Acute (2) Schizoaffective disorder, bipolar type: Status: Acute (3) Jesus Manuel: Status: Acute (4) Psychosis: Status: Acute (5) ROSCOE (generalized anxiety disorder): Status: Acute Reason for Visit Reason for Visit: no sleep, MHE Brief History: History of Present Illness cB Chao is a 43 year old male who presented to the emergency department with the following report: Chief Complaint: Psychiatric Symptoms Stated Complaint: no sleep, MHE Time Seen by Provider: 09/24/23 14:08 History of Present Illness: 43-year-old male patient with a history of schizophrenia comes in with difficulty sleeping and increasing in speech and talking to himself. Patient denies any visual or auditory hallucinations. Patient reports occasional headache. Patient reports some nausea and some changes in stools. Spouse believes that he needs to be admitted due to his change in his behavior and believes that his medications needs to be adjusted. Patient at this time does not really want to be admitted. Patient denies any homicidal or suicidal thoughts. Spouse believes the medications are not working like they should. Patient reports taking clozapine and Abilify. complaint: altered mental status Onset (ago): day(s) Duration: changing over time History of same: Yes Relieving factors: medication Exacerbating factors: none Associated psychiatric symptoms: racing thoughts Associated symptoms: Reports racing thoughts. He was admitted to the neuropsychiatric unit for definitive treatment of those issues. He is known to the system through outpatient services as well as to this ad writer through an inpatient visit in February 2021. He has had active care until recently but presents with difficulties related to his medications. An excerpt of his last hospitalization with this ad writer discharge summary is included below for context. Extensive conversations identified significant discrepancies in his medications. He reported taking his medications as prescribed but his feeling tendencies show significant discrepancies and he reported not really being sure about what he was taking and then recently trying to get back to taking it as prescribed on the bottle but outside of the Clozaril there are significant concerns that he has been consistent with his medication. He denied significant issues but was respecting the fact that his spouse was noting behavioral changes. Given the significant medications he is on like Clozaril we discussed the importance of making sure that he is taking his medication as prescribed and see how he does over the next few days with medications taken at the appropriate doses as he was taking half of what his Prozac dose was possibly one fourth of what his Abilify dose was as well as other medications including physical medicine medications. Per his 02/21/2021 [facility] inpatient psychiatric discharge summary: Discharge Diagnosis (1) Psychosis: Status: Acute (2) Jesus Manuel: Status: Acute (3) Gastritis: Status: Acute (4) Gastric diverticulum: Status: Chronic (5) Frequent loose stools: Status: Acute Qualifiers: Diarrhea type: unspecified type Qualified Code(s): R19.7 - Diarrhea, unspecified (6) Hiatal hernia: Status: Acute (7) Vitamin D deficiency: Status: Acute (8) Seasonal allergies: Status: Acute (9) Hypertension: Status: Acute Qualifiers: Hypertension type: essential hypertension Qualified Code(s): I10 - Essential (primary) hypertension (10) ROSCOE (generalized anxiety disorder): Status: Acute (11) Hypothyroid: Status: Acute Qualifiers: Hypothyroidism type: acquired Qualified Code(s): E03.9 - Hypothyroidism, unspecified (12) Tobacco use: Status: Acute (13) Schizophrenia: Status: Acute Qualifiers: Schizophrenia type: undifferentiated schizophrenia Qualified Code(s): F20.3 - Undifferentiated schizophrenia (14) Bleeding hemorrhoids: Status: Acute (15) GERD (gastroesophageal reflux disease): Status: Acute Qualifiers: Esophagitis presence: without esophagitis Qualified Code(s): K21.9 - Gastro-esophageal reflux disease without esophagitis Reason for Visit Reason for Visit: MHE:TALKING TO SELF, NO SLEEP Brief History: History of Present Illness Bc Chao is a 40 year old male who presented to the emergency department with the following report: Chief complaint: Psychiatric Symptoms Stated complaint: MHE:TALKING TO SELF, NO SLEEP Time Seen by Provider: 02/18/21 15:04 History of Present Illness: HPI narrative: HPI: [40]yo patient w/ hx of anxiety, jesus manuel presenting for acute manic episode. On arrival, the patient is AAOx3 and cooperative with my evaluation. No focal complaints of chest pain, shortness of breath, palpitations, N/V, focal GI/ complaints. Currently denies SI/HI. No complaints of hallucinations. Onset: 3 days ago Duration: ongoing Location: home Severity: severe. He was admitted to the neuropsychiatric unit for definitive treatment of those issues. He presents today reporting that he has been hospitalized psychiatrically as a kid. Given his state of likely jesus manuel he struggled to stay on task or explain some aspects with clarity. But he reports between ages 17 and 19 he was hospitalized multiple times and it appears he may have had periods he was at a residential treatment facility. He reports he started having psychosis and at one point became mute due to his lack of trust and presence of paranoia. He endorses a long history of medications including Zyprexa, Seroquel Wellbutrin and Prozac. He reports that he has been on the Abilify injection for as long as he can remember. He reports has been effective until recently. He reports he stopped going to outpatient treatment facilities because he became so stable that his family doctor was able to prescribe for him and now things have changed and he is really worried. He endorses smoking less than a pack of cigarettes a day, denies alcohol, marijuana or any illicit drug use he reports he does have a past history of marijuana and some crack that he used very briefly he reports he did have a rehab stent as a child but that may have been confused with the RTF but he denies ever having a DUI. He denies any suicide attempts. But he reports that he seems to be entering a manic phase he had a period of days where he went 3 days without sleep he reports he been really hard on him and his reports he has been talking to himself more and more but he had previously been really stable. He reports increased pace of his speech feeling like he is on speed so to speak. We discussed the risk benefits and alternatives of a trial of Invega versus lithium and he understood and agreed to proceed as is documented in this note. Psychiatric history: As above. Substance abuse history: As above. Family history: He reports that there has been some mental health and addiction issues in his family but he denies any suicide attempts or completions in his family. Developmental history: He denies any issues with his or delivery, reports that he learned to walk and talk and met his developmental milestones on time, reports that when he went off to school he did not require speech therapy, learning support emotional support or special education classes. Psychosocial history: He reports that his parents were together when he was born but split early on and that he is the only product of that union. He reports he has 2 younger siblings a brother and a sister through his mother that are his half siblings and he is unaware of any children that would be his half siblings from his father. He reports his childhood was good and denied emotional physical or sexual abuse but he did report that his brother was taken by [employer] and that he was in placement but again he was unclear about RTF versus inpatient hospital versus placement by child protective services. He did not graduate from high school but he did get his GED and get some college. He endorses being a heterosexual with his longest relationship being 4 years. He reports he has been 1 time and never , he denies having any children, he denies being in the , and endorses being a Mandaeism. 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 He currently lives in a house with his . Legal history: He denies any significant legal peril except for some things that may have happened in his youth. Medical history: He endorses some diverticulitis. Hospital Course Hospital Course He acclimated to the individual, group and milieu therapies provided. He presented to the emergency department reporting he was feeling fine but that his was concerned that he was slipping into past behaviors. He was already on Clozaril but according to pharmacy records he had not been picking up his medication appropriately but there were thoughts that it could be explained by some discontinuation of medication and restarting the medication for 1 and additionally it was felt that he had been under a lot of stress. He was given his medications as they were prescribed while in the hospital and he seemed to very quickly be less irritable or agitated. There was frustration on the part of his that changes were being made but we discussed in a very lengthy conversation the fact that we see people decompensate all the time just because is not taking the medication as it was prescribed and that seem to be the case with him though there were reports that his provider had told him he could discontinue his medication at 1 point and then restart it. We observed him on the unit without issue or any signs of the concerns of his raised. We provided enough medication for him to be at a full dose of the Abilify as it is reported in his outpatient physicians note. Otherwise there were no med changes and he and his were advised to get a pillowcase so that she could have a better picture of how consistent he is actually being with his medication. He had modest improvement during the stay. He worked with the social work team for appropriate outpatient appointments and follow-up. He was able to contract for safety outside the hospital prior to discharge. And his was supportive of them managing this at home together. During the hospitalization, patient had routine laboratory studies which were within normal limits except for few outliers. Sodium was low but not with any significant clinical relevance. Additionally there was a general medical evaluation which was also within normal limits and revealed no new acute processes. Discharge Summary: At the time of discharge, he denied active psychosis or lethality. Mood and anxiety were well managed. Patient endorsed a plan to avoid all drugs of abuse and follow-up with the aftercare recommendations of the treatment team. Patient was evaluated and deemed to be absent credible lethality, and had achieved significant benefit from an inpatient hospitalization, so was discharged Involuntary Hold Information 96 Hour Hold: 96 Hour Involuntary Admission: No Mental Status Exam MSE Comments: This is an obese versus morbidly obese white male in hospital scrubs on with limited grooming and eye contact. No abnormal movements except for psychomotor retardation. Cooperative with exam in mild distress. Speech was normal rate and volume. Mood described as okay I think, affect congruent but slightly subdued. Thought process organized. Thought content: Patient denied suicidal or homicidal ideation, there were no delusions reported or noted, but there were some reports odd thinking, he did report occasionally having some auditory and visual hallucinations. Attention and concentration were intact and memory appeared somewhat unreliable but none were formally tested. He is alert and oriented x3. Insight and judgment are limited, impulse control is limited. Discharge Data Studies Completed and Pending: Completed Studies During Hospitalization Category Date Time Status CT head wo con* 7 0450 Stat Cat Scan 09/24/23 14:27 Completed Radiology Impressions Head CT 09/24/23 14:27 IMPRESSION: 1. No evidence of intracranial hemorrhage or mass effect. 2. Partial opacification of the LEFT greater than RIGHT mastoid air cells. 3. No acute intracranial findings. Laboratory Results WBC 5.70 10^3/uL (3.2 9-11.43) 09/27/23 15:12 RBC 4.00 10^6/uL (3.8 5-5.65) 09/27/23 15:12 Hgb 10.60 g/dL (11.27 -16.99) L 09/27/23 15:12 Hct 31.5 % (37-53) L 09/27/23 15:12 MCV 78.8 fl (82-101) L 09/27/23 15:12 MCH 26.5 pg (27-33) L 09/27/23 15: MCHC 33.7 g/dL (30-55) 09/27/23 15: RDW 16.0 % (12.1-15.1 ) H 09/27/23 15:12 Plt Count 254 10^3/cmm (157 -399) 09/27/23 15:12 MPV 8.6 fL (7.4-10.4) 09/27/23 15: Neut % (Auto) 62.0 % 09/27/23 15: Lymph % (Auto) 25.1 % 09/27/23 15: [place] % (Auto) 8.8 % 09/27/23 15: Eos % (Auto) 3.2 % 09/27/23 15: Baso % (Auto) 0.5 % 09/27/23 15: Neut # (Auto) 3.54 10^3/uL (1.8 -7.7) 09/27/23 15: Lymph # (Auto) 1.4 10^3/uL (0.8- 4.8) 09/27/23 15:12 [place] # (Auto) 0.5 10^3/uL (0.2- 0.9) 09/27/23 15: Eos # (Auto) 0.2 10^3/uL (0.0- 0.8) 09/27/23 15: Baso # (Auto) 0.0 10^3/uL (0.0- 0.1) 09/27/23 15: Nucleated RBC % (a uto) 0 % 09/27/23 15: Nucleated RBCs # 0.0 /100WBC 09/27/23 15:12 Sodium 131 mmol/L (136-1 45) L 09/27/23 15:12 Potassium 3.6 mmol/L (3.5-5 .1) 09/27/23 15:12 Chloride 95 mmol/L (98-107 ) L 09/27/23 15:12 Carbon Dioxide 25 mmol/L (22-29) 09/27/23 15:12 Anion Gap 14.6 (5-19) 09/27/23 15:12 BUN 8 mg/dL (6-20) 09/27/23 15:12 Creatinine 1.0 mg/dL (0.7-1. 2) 09/27/23 15:12 GFR Calculation 82.3 mL/min (90-1 30) L 09/27/23 15:12 Glucose 104 mg/dL (65-115 ) 09/27/23 15:12 Calculated Osmolal ity 271 mOsm/kg (285- 295) L 09/27/23 15:12 Calcium 8.5 mg/dL (8.5-10 .5) 09/27/23 15:12 Total Bilirubin 0.2 mg/dL (0.15-1 .2) 09/27/23 15:12 AST 14 U/L (0-40) 09/27/23 15:12 ALT 19 U/L (0-41) 09/27/23 15:12 Alkaline Phosphata se 63 U/L (40-130) 09/27/23 15:12 Total Protein 6.1 g/dL (6.6-8.7 ) L 09/27/23 15:12 Albumin 4.2 g/dL (3.5-5.2 ) 09/27/23 15:12 Globulin 1.9 g/dL (1.3-4.6 ) 09/27/23 15:12 TSH 9.85 uIU/mL (0.27 -4.20) H 09/24/23 14:24 Urine Color Yellow (Yellow) 09/24/23 14:22 Urine Appearance Clear (CLEAR) 09/24/23 14:22 Urine pH 7 (5-7) 09/24/23 14:22 Ur Specific Gravit y 1.005 (1.005-1.0 30) 09/24/23 14:22 Urine Protein Neg (Negative) 09/24/23 14:22 Urine Glucose (UA) Norm (Normal) 09/24/23 14:22 Urine Ketones Negative (Negati ve) 09/24/23 14:22 Urine Blood Neg (Negative) 09/24/23 14:22 Urine Nitrate Negative (Negati ve) 09/24/23 14:22 Urine Bilirubin Neg (Negative) 09/24/23 14:22 Urine Urobilinogen Neg mg/dL (Negati ve) 09/24/23 14:22 Ur Leukocyte Lien ase Negative (Negati ve) 09/24/23 14:22 Salicylates < 0.3 mg/dL (3-10 ) L 09/24/23 14:24 Urine Opiates Scre en Negative ng/mL (N egative) 09/24/23 14:22 Acetaminophen < 5.0 ug/mL (10-3 0) L 09/24/23 14:24 Ur Barbiturates Sc reen Negative ng/mL (N egative) 09/24/23 14:22 Ur Phencyclidine S crn Negative ng/mL (N egative) 09/24/23 14:22 Ur Amphetamines Sc reen Negative ng/mL (N egative) 09/24/23 14:22 U Benzodiazepines Scrn Negative ng/mL (N egative) 09/24/23 14:22 Urine Cocaine Scre en Negative ng/mL (N egative) 09/24/23 14:22 U Marijuana (THC) Screen Negative ng/mL (N egative) 09/24/23 14:22 Ethyl Alcohol < 10 mg/dL (0-10) 09/24/23 14:24 Vitals: Last Vital Signs Temp 98 F 09/27/23 14:00 Pulse 73 09/27/23 14:00 Resp 16 09/27/23 14:00 BP 129/89 09/27/23 14:00 Pulse Ox 98 09/27/23 14:00 O2 Del Method Room Air 09/27/23 14:00 Discharge Plan Discharge Patient Disposition: Home Condition: Stable Prescriptions: New hydroxyzine pamoate 25 mg Capsule 50 mg PO Q6H PRN (Reason: Anxiety) 30 Days Qty: 120 1RF Continued loratadine 10 mg tablet 10 mg PO DAILY PRN (Reason: allergy symptoms) 90 Days Qty: 90 3RF losartan 100 mg tablet 100 mg PO DAILY 90 Days Qty: 90 1RF fluticasone propionate 50 mcg/actuation spray,suspension 1 spray intranasal DAILY PRN (Reason: allergy symptoms) Qty: 16 1RF Rx Instructions: administer into each nostril metoprolol succinate 25 mg tablet extended release 24 hr 25 mg PO DAILY 30 Days Qty: 30 5RF buspirone 15 mg tablet 15 mg PO DAILY PRN (Reason: anxiety) 30 Days Qty: 30 5RF clozapine 200 mg tablet 600 mg PO DAILY 30 Days Qty: 90 5RF Rx Instructions: 340 b baclofen 20 mg tablet 20 mg PO TID PRN (Reason: back pain) Qty: 90 2RF atropine 1 % drops See Rx Instructions sublingual .COMPLEX Qty: 5 3RF Rx Instructions: 1-2 drops SL HS prn for sialorrhea levothyroxine 112 mcg tablet 224 mcg PO DAILY 90 Days Qty: 180 0RF sucralfate 1 gram tablet See Rx Instructions .ROUTE .COMPLEX Qty: 60 0RF Dose Instruction: TAKE ONE TABLET BY MOUTH TWICE DAILY as needed for heartburn Rx Instructions: TAKE ONE TABLET BY MOUTH TWICE DAILY as needed for heartburn pantoprazole 40 mg tablet,delayed release (DR/EC) 40 mg PO BID PRN (Reason: Heartburn) mirtazapine 30 mg tablet 30 mg PO BEDTIME One-A-Day Womens Formula 18 mg iron-400 mcg-500 mg Tablet 1 tab PO DAILY aripiprazole 10 mg tablet 10 mg PO BID 30 Days Qty: 60 1RF Changed fluoxetine 40 mg capsule 40 mg PO DAILY 30 Days Qty: 30 1RF Discharge Orders: Discharge Order (Routine); Ordered 09/27/23 Ordered By: Elroy Matthews Referrals: Carole Chakraborty MD [Physician] - 09/30/23 10:00 am (At [facility] office. [address] [address]) Odalys Matthews MD [Primary Care Provider] - Discharge Diet: Regular Discharge Activity: Resume usual activity Patient Instructions: Clozapine (By mouth), Hydroxyzine (By mouth) (Vistaril), Depression (DC), Schizoaffective Disorder (DC), Psychotic Disorder (DC), Opioid Safety Discharge Attestations NPU Time Spent in Discharge Care*: less than 30 min Specific Discharge Activities: Specific discharge activities: educating patient, educating and/or supporting family/caregiver, discussing with family independence case manager/social workers/dc planners, documenting/other paperwork and evaluating patient/reviewing data Coding Level of Care Code Acute Code for Chg Fwd Diagnoses long term acute care registered nurse current use of clozapine Z79.899 Schizoaffective disorder, bipolar type F25.0 Jesus Manuel F30.9 Psychosis F29 ROSCOE (generalized anxiety disorder) F41.1
[2023-09-27 17:26] VITALS: BP 129/89; PULSE 73; RESP 16; TEMP 36.6; O2SAT 98
== END 2023-09-27 15:52 | disposition home or self-care (01) | DRG 885 ==
LOC: ER 16:13 → NP 17:31
PROVIDERS: Psychiatry & Neurology Psychiatry; Admitting Provider Psychiatry & Neurology Psychiatry; Emergency Provider Nurse Practitioner Family; PCP Family Medicine; Visit Provider Psychiatry & Neurology Psychiatry
DX: F25.0 Schizoaffective disorder, bipolar type (principal); E87.1 Hypo-osmolality and hyponatremia; I10 Essential (primary) hypertension; F41.1 Generalized anxiety disorder; K21.9 Gastro-esophageal reflux disease without esophagitis; E03.9 Hypothyroidism, unspecified; Z87.891 Personal history of nicotine dependence
CPT/HCPCS: 36415; 70450; 80053; 80306; 80307; 81003; 84295; 84443; 85025; 97150; 97165; 99285; J7030

== ENCOUNTER → 2023-10-13 10:20 | Outpatient (BNVA) | payer OTHER, SELFPAY | PROVIDERS: PCP Family Medicine; Visit Provider Psychiatry & Neurology Psychiatry | DX: Z79.899 Other long term (current) drug therapy (principal) | CPT/HCPCS: 85025 ==

== ENCOUNTER → 2023-10-30 16:55 | Outpatient (BNVA) | payer OTHER, SELFPAY | PROVIDERS: PCP Family Medicine; Visit Provider Psychiatry & Neurology Psychiatry | DX: Z79.899 Other long term (current) drug therapy (principal) | CPT/HCPCS: 85025 ==

== ENCOUNTER → 2023-12-04 11:15 | Outpatient (BNVA) | payer OTHER, SELFPAY | PROVIDERS: PCP Family Medicine; Visit Provider Family Medicine | DX: Z51.81 Encounter for therapeutic drug level monitoring (principal); I10 Essential (primary) hypertension; E03.9 Hypothyroidism, unspecified; F20.3 Undifferentiated schizophrenia; F41.1 Generalized anxiety disorder | CPT/HCPCS: 80061; 84439; 84443; 84481; 85025 ==

== ENCOUNTER → 2023-12-30 12:33 | Outpatient (BNVA) | payer OTHER, SELFPAY | PROVIDERS: PCP Family Medicine; Visit Provider Psychiatry & Neurology Psychiatry | DX: Z79.899 Other long term (current) drug therapy (principal) | CPT/HCPCS: 85025 ==

== ENCOUNTER → 2024-01-16 09:10 | Outpatient (BNVA) | payer OTHER, SELFPAY | PROVIDERS: PCP Family Medicine; Referring Provider Psychiatry & Neurology Psychiatry; Visit Provider Psychiatry & Neurology Psychiatry | DX: Z79.899 Other long term (current) drug therapy (principal) | CPT/HCPCS: 80053; 85025 ==

== ENCOUNTER → 2024-01-26 09:30 | Outpatient (BNVA) | payer OTHER, SELFPAY | PROVIDERS: PCP Family Medicine; Visit Provider Psychiatry & Neurology Psychiatry | DX: Z79.899 Other long term (current) drug therapy (principal) | CPT/HCPCS: 85025 ==

== ENCOUNTER → 2024-02-09 15:06 | Outpatient (BNVA) | payer OTHER, SELFPAY | PROVIDERS: PCP Family Medicine; Referring Provider Psychiatry & Neurology Psychiatry; Visit Provider Psychiatry & Neurology Psychiatry | DX: Z79.899 Other long term (current) drug therapy (principal) | CPT/HCPCS: 85025 ==

== ENCOUNTER → 2024-02-23 12:50 | Outpatient (BNVA) | payer OTHER, SELFPAY | PROVIDERS: PCP Family Medicine; Visit Provider Psychiatry & Neurology Psychiatry | DX: Z79.899 Other long term (current) drug therapy (principal) | CPT/HCPCS: 85025 ==

== ENCOUNTER → 2024-03-08 13:58 | Outpatient (BNVA) | payer OTHER, SELFPAY | PROVIDERS: PCP Family Medicine; Visit Provider Psychiatry & Neurology Psychiatry | DX: Z79.899 Other long term (current) drug therapy (principal) | CPT/HCPCS: 80159; 85025 ==

== ENCOUNTER → 2024-03-22 10:01 | Outpatient (BNVA) | payer OTHER, SELFPAY | PROVIDERS: PCP Family Medicine; Visit Provider Psychiatry & Neurology Psychiatry | DX: Z79.899 Other long term (current) drug therapy (principal) | CPT/HCPCS: 85025 ==

== ENCOUNTER → 2024-04-08 10:11 | Outpatient (BNVA) | payer OTHER, SELFPAY | PROVIDERS: PCP Family Medicine; Referring Provider Psychiatry & Neurology Psychiatry; Visit Provider Psychiatry & Neurology Psychiatry | DX: Z79.899 Other long term (current) drug therapy (principal) | CPT/HCPCS: 85025 ==

== ENCOUNTER → 2024-05-10 10:09 | Outpatient (BNVA) | payer OTHER, SELFPAY | PROVIDERS: PCP Family Medicine; Visit Provider Psychiatry & Neurology Psychiatry | DX: Z79.899 Other long term (current) drug therapy (principal) | CPT/HCPCS: 85025 ==

== ENCOUNTER → 2024-06-07 13:03 | Outpatient (BNVA) | payer OTHER, SELFPAY | PROVIDERS: PCP Family Medicine; Visit Provider Psychiatry & Neurology Psychiatry | DX: Z79.899 Other long term (current) drug therapy (principal); E87.1 Hypo-osmolality and hyponatremia; E03.9 Hypothyroidism, unspecified | CPT/HCPCS: 80048; 80053; 84443; 85025 ==

== ENCOUNTER → 2024-07-08 13:47 | Outpatient (BNVA) | payer OTHER, SELFPAY | PROVIDERS: PCP Family Medicine; Visit Provider Psychiatry & Neurology Psychiatry | DX: Z79.899 Other long term (current) drug therapy (principal) | CPT/HCPCS: 85025 ==

== ENCOUNTER → 2024-08-10 10:30 | Outpatient (BNVA) | payer OTHER, SELFPAY | PROVIDERS: PCP Family Medicine; Visit Provider Psychiatry & Neurology Psychiatry | DX: Z79.899 Other long term (current) drug therapy (principal); F41.1 Generalized anxiety disorder; F25.0 Schizoaffective disorder, bipolar type | CPT/HCPCS: 85025 ==

== ENCOUNTER 2024-09-13 11:41 | Outpatient (CLI) | payer OTHER, SELFPAY ==
[2024-09-13 12:10] VITALS: BMI 38.0
--- NOTE | 2024-09-13 12:12 | ECG_ITS ---
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 Interpretive Statements EXERCISE STRESS TEST EXERCISE DATA: The patient was exercised by Jigar protocol. Baseline heart rate was 106 beats per minute. Baseline blood pressure was 145/96 millimeters of mercury. Maximal predicted heart rate was 178 beats per minute. Maximum heart rate achieved was 164, which was 92% of the maximum predicted heart rate. Maximum blood pressure was 183/104 millimeters of mercury. Total exercise time was 6 minutes and 47 minutes. Maximum METs achieved was 10.2. The reason for ending the test was maximal effort achieved. The patient complained of shortness of breath during the stress test, which then resolved at the end of the test. ELECTROCARDIOGRAM: BASELINE: Showed sinus rhythm, normal axis, no significant ST-T changes at the baseline noted. [] EXERCISE: At the peak exercise level, [] No significant ST-T changes suggestive of ischemia noted. [] RECOVERY: During the recovery period, heart rate dropped appropriately. No significant ST-T changes in the recovery suggestive of ischemia noted. [] CONCLUSION: 1. Exercise capacity is good 2. Heart rate response was appropriate 3. Blood pressure response was appropriate 4. Symptoms not suggestive of ischemia. 5. Electrocardiogram portion of the stress test was not suggestive of ischemia. 6. Nuclear scan will be documented separately. Electronically Signed On 09-30-2024 11:06:01 CDT by Wil Ferreira M.D. [email or web address]
[2024-09-13 12:32] VITALS: BP 142/103; PULSE 117
== END 2024-09-13 11:42 | disposition home or self-care (01) ==
LOC: CDL 11:42
PROVIDERS: PCP Family Medicine; Visit Provider Family Medicine
DX: R06.02 Shortness of breath (principal)
CPT/HCPCS: 93017

== ENCOUNTER → 2024-10-12 10:30 | Outpatient (BNVA) | payer OTHER, SELFPAY | PROVIDERS: PCP Family Medicine; Visit Provider Psychiatry & Neurology Psychiatry | DX: Z79.899 Other long term (current) drug therapy (principal) | CPT/HCPCS: 80053; 80061; 83036; 84443; 85025 ==

== ENCOUNTER → 2024-11-09 12:14 | Outpatient (BNVA) | payer OTHER, SELFPAY | PROVIDERS: PCP Family Medicine; Visit Provider Psychiatry & Neurology Psychiatry | DX: F25.0 Schizoaffective disorder, bipolar type (principal) | CPT/HCPCS: 80053; 80061; 83036; 84443; 85025 ==

== ENCOUNTER → 2024-11-30 12:47 | Outpatient (BNVA) | payer OTHER, SELFPAY | PROVIDERS: PCP Family Medicine; Visit Provider Psychiatry & Neurology Psychiatry | DX: Z79.899 Other long term (current) drug therapy (principal) | CPT/HCPCS: 85025 ==

== ENCOUNTER → 2025-02-01 10:44 | Outpatient (BNVA) | payer OTHER, SELFPAY | PROVIDERS: PCP Family Medicine; Visit Provider Psychiatry & Neurology Psychiatry | DX: Z79.899 Other long term (current) drug therapy (principal) | CPT/HCPCS: 80053; 80061; 80159; 83036; 84443; 85007; 85027 ==

== ENCOUNTER → 2025-03-17 16:19 | Outpatient (BNVA) | payer OTHER, SELFPAY | PROVIDERS: PCP Family Medicine; Visit Provider Psychiatry & Neurology Psychiatry | DX: Z79.899 Other long term (current) drug therapy (principal) | CPT/HCPCS: 80053; 85025 ==